=== PATIENT | female | born 1975 | race Caucasian/White ===

== ENCOUNTER 2018-05-26 08:30 | Inpatient (IN) ==
--- NOTE | 2018-05-26 08:49 | ED ---
[facility] General Chief Complaint: Shortness of Breath/Dyspnea Stated Complaint: Sob Time Seen by Provider: 05/26/18 08:44 History of Present Illness Patient presents to the emergency department complaining of shortness of breath that started when she arrived from [place] on a flight Saturday and he got worse last night. She has factor V [place]. Complaint of dyspnea at rest on exertion. Also complaining of sternal chest pain, 6 out of 10, intermittent, nonradiating, new onset, worse with exertion, no alleviating factors. States that she had an ultrasound of her lower extremity secondary to right calf injury and it was negative on the third. She denies fever, vomiting, but reports right lower extremity edema. Related Data Home Medications Medication Instructions Recorded Confirmed eszopiclone [Lunesta] 2 mg PO QDRHS 05/26/18 05/26/18 Allergies Allergy/AdvReac Type Severity Reaction Status Date / Time Penicillins Allergy Anaphylaxis Verified 05/26/18 08:45 Review of Systems ROS Unobtainable All other systems reviewed negative except as stated in HPI [facility] Medical History Medical History Cholecystectomy planned (Acute) Factor 5 Leiden mutation, heterozygous (Acute) History of hysterectomy (Acute) Surgical History Surgical History Gastric bypass status for obesity (Acute) History of appendectomy (Acute) Social History Social History Substance History: No History of Abuse Second Hand Smoke Exposure: No Smoking Status: Former smoker Tobacco Type: Cigarettes How Often Do You Have a Drink Containing Alcohol: 2 to 4 times a month Recent Travel in [facility] within the Last 8 Weeks: No Recent Out of Country Travel within the Last 8 Weeks: No Exam Narrative Exam Narrative: GENERAL: Mild respiratory distress. SKIN: Focused skin assessment warm/dry. HEAD: Atraumatic. Normocephalic. EYES: Pupils equal and round. No scleral icterus. No injection or drainage. ENT: No nasal bleeding or discharge. Mucous membranes pink and moist. NECK: Trachea midline. No JVD. CARDIOVASCULAR: Regular rate and rhythm. No murmur appreciated. RESPIRATORY: No accessory muscle use. Clear to auscultation. Breath sounds equal bilaterally. GASTROINTESTINAL: Abdomen soft, non-tender, nondistended. Hepatic and splenic margins not palpable. MUSCULOSKELETAL: No obvious deformities. No clubbing. No cyanosis. Right lower extremity calf swelling. NEUROLOGICAL: Awake and alert. No obvious cranial nerve deficits. Motor grossly within normal limits. Normal speech. PSYCHIATRIC: Appropriate mood and affect; insight and judgment normal. Course Initial Documented Vital Signs Temperature 97.3 F L 05/26/18 08:33 Pulse Rate 111 H 05/26/18 08:33 Respiratory Rate 24 05/26/18 08:33 Blood Pressure 135/74 05/26/18 08:33 Pulse Oximetry 100 05/26/18 08:33 Last Documented Vital Signs Temperature 97.3 F L 05/26/18 08:33 Pulse Rate 102 H 05/26/18 10:36 Respiratory Rate 20 05/26/18 10:36 Blood Pressure 111/80 05/26/18 10:36 Pulse Oximetry 97 05/26/18 10:36 Medical Decision Making MDM Narrative Medical decision making narrative: Patient presents to the emergency department complaining of chest pain or shortness of breath. Patient was placed on cardiac monitor technician, continuous pulse ox, and IV access was obtained. Stat CTA to rule out PE was ordered, EKG, chest x-ray, labs. 0945-alerted by ground control approach technician that patient has massive bilateral PEs. Spoke to radiologist to repeat CT. Advised that there is questionable right heart strain and massive bilateral PEs. Stat echo ordered. 0951-Spoke to ICU attending, Dr. Reid, advised to call IR as there is a protocol in place for this, tPA then heparin gtt. Labs show elevated BNP, troponin, glucose, CK-MB, AST, ALT, alk phos. Chest x- ray shows no acute process. CTA CONCLUSION:1. There is a large burden of a central PE that appears acute. There are associated findings suggesting elevated right heart pressures/right heart strain.2. The lungs are clear and no other acute finding is identified. U/S CONCLUSION: 1. There is occlusive thrombus/DVT within the right popliteal vein and within the non deep veins of the calf.2. The more proximal veins of the right lower extremity are patent. 0955- Spoke to IR, placed stat consult. Patient currently stable. 1050: Patient taken to IR and has been admitted to ICU. Differential Diagnosis Differential Diagnosis: PE, ACS, pneumothorax, musculoskeletal chest pain, costochondritis Lab Data Result diagrams: 05/26/18 09:00 05/26/18 09:00 Lab Results 05/26/18 05/26/18 05/26/18 Range/Units 09:00 09:00 09:00 WBC 7.9 (4.0-11.0) th/mm3 RBC 4.37 (4.00-5.30) mil/mm3 Hgb 12.1 (11.6-15.3) gm/dL Hct 37.3 (35.0-46.0) % MCV 85.5 (80.0-100.0) fL MCH 27.7 (27.0-34.0) pg MCHC 32.4 (32.0-36.0) % RDW 17.3 H (11.6-17.2) % Plt Count 232 (150-450) th/mm3 MPV 10.3 (7.0-11.0) fL Neut % (Auto) 59.5 (16.0-70.0) % Lymph % (Auto) 30.9 (9.0-44.0) % Trigg % (Auto) 7.6 (0.0-8.0) % Eos % (Auto) 1.0 (0.0-4.0) % Baso % (Auto) 1.0 (0.0-2.0) % Neut # (Auto) 4.7 (1.8-7.7) th/mm3 Lymph # (Auto) 2.4 (1.0-4.8) th/mm3 Trigg # (Auto) 0.6 (0.0-0.9) th/mm3 Eos # (Auto) 0.1 (0.0-0.4) th/mm3 Baso # (Auto) 0.1 (0.0-0.2) th/mm3 WBC Differential . Differential Comment Auto diff final PT 9.9 (9.8-11.6) sec INR 1.0 Ratio APTT 24.6 (24.3-30.1) sec Sodium 140 (136-145) meq/L Potassium 3.8 (3.5-5.1) meq/L Chloride 106 (98-107) meq/L Carbon Dioxide 22.0 (21.0-32.0) meq/L Anion Gap 12 (5-15) meq/L BUN 16 (7-18) mg/dL Creatinine 0.73 (0.50-1.00) mg/dL Estimated GFR 88 L (>89) mL/min Random Glucose 123 H (74-106) mg/dL Calcium 8.8 (8.5-10.1) mg/dL Magnesium 2.1 (1.5-2.5) mg/dL Total Bilirubin 0.4 (0.2-1.0) mg/dL AST 111 H (15-37) U/L ALT 104 H (10-53) U/L Alkaline Phosphatase 124 H (45-117) U/L Total Creatine Kinase 138 (26-192) U/L CK-MB (CK-2) 3.9 H (0.5-3.6) ng/mL Troponin I 0.12 H (0.02-0.05) ng/mL B-Natriuretic Peptide (0-100) pg/mL Total Protein 7.3 (6.4-8.2) g/dL Albumin 3.5 (3.4-5.0) g/dL Blood Type Blood Type Recheck Antibody Screen 05/26/18 05/26/18 Range/Units 09:00 09:00 WBC (4.0-11.0) th/mm3 RBC (4.00-5.30) mil/mm3 Hgb (11.6-15.3) gm/dL Hct (35.0-46.0) % MCV (80.0-100.0) fL MCH (27.0-34.0) pg MCHC (32.0-36.0) % RDW (11.6-17.2) % Plt Count (150-450) th/mm3 MPV (7.0-11.0) fL Neut % (Auto) (16.0-70.0) % Lymph % (Auto) (9.0-44.0) % Trigg % (Auto) (0.0-8.0) % Eos % (Auto) (0.0-4.0) % Baso % (Auto) (0.0-2.0) % Neut # (Auto) (1.8-7.7) th/mm3 Lymph # (Auto) (1.0-4.8) th/mm3 Trigg # (Auto) (0.0-0.9) th/mm3 Eos # (Auto) (0.0-0.4) th/mm3 Baso # (Auto) (0.0-0.2) th/mm3 WBC Differential Differential Comment PT (9.8-11.6) sec INR Ratio APTT (24.3-30.1) sec Sodium (136-145) meq/L Potassium (3.5-5.1) meq/L Chloride (98-107) meq/L Carbon Dioxide (21.0-32.0) meq/L Anion Gap (5-15) meq/L BUN (7-18) mg/dL Creatinine (0.50-1.00) mg/dL Estimated GFR (>89) mL/min Random Glucose (74-106) mg/dL Calcium (8.5-10.1) mg/dL Magnesium (1.5-2.5) mg/dL Total Bilirubin (0.2-1.0) mg/dL AST (15-37) U/L ALT (10-53) U/L Alkaline Phosphatase (45-117) U/L Total Creatine Kinase (26-192) U/L CK-MB (CK-2) (0.5-3.6) ng/mL Troponin I (0.02-0.05) ng/mL B-Natriuretic Peptide 337 H (0-100) pg/mL Total Protein (6.4-8.2) g/dL Albumin (3.4-5.0) g/dL Blood Type A Negative Blood Type Recheck Required Antibody Screen Negative Imaging Data Radiologist's impression: Chest CTA 05/26/18 08:45 CONCLUSION: 1. There is a large burden of a central PE that appears acute. There are associated findings suggesting elevated right heart pressures/right heart strain. 2. The lungs are clear and no other acute finding is identified. 3. These findings were related to the ordering physician immediately after the procedure was completed. Chest X-Ray 05/26/18 08:45 CONCLUSION: No acute cardiopulmonary abnormality is identified. Venous Doppler Study 05/26/18 08:45 CONCLUSION: 1. There is occlusive thrombus/DVT within the right popliteal vein and within the non deep veins of the calf. 2. The more proximal veins of the right lower extremity are patent. ECG Data EKG Prior to Arrival: No Attestation: I personally reviewed and interpreted this ECG as follows: Discharge Plan Discharge Disposition Patient Disposition: 30 Still Patient Discharge Condition Condition: Stable Discharge Details Diagnosis: Acute pulmonary embolus, DVT (deep venous thrombosis) Physicians Team ED Provider: Estela Barr Primary Care Provider: Primary Care Physici,Karina Attending Provider: Abigail Mejía Status ED Status: Admitted Patient
[2018-05-26 09:19] LABS: Baso # (Auto) 0.1 th/mm3 (0.0-0.2); Eos # (Auto) 0.1 th/mm3 (0.0-0.4); Hematocrit 37.3 % (35.0-46.0); Hemoglobin 12.1 gm/dL (11.6-15.3); Lymph # (Auto) 2.4 th/mm3 (1.0-4.8); Lymph % (Auto) 30.9 % (9.0-44.0); Mean Corpuscular HGB Conc 32.4 % (32.0-36.0); Mean Corpuscular Hemoglobin 27.7 pg (27.0-34.0); Mean Corpuscular Volume 85.5 fL (80.0-100.0); Mean Platelet Volume 10.3 fL (7.0-11.0); Mono # (Auto) 0.6 th/mm3 (0.0-0.9); Mono % (Auto) 7.6 % (0.0-8.0); Neut # (Auto) 4.7 th/mm3 (1.8-7.7); Neut % (Auto) 59.5 % (16.0-70.0); Platelet Count 232 th/mm3 (150-450); Red Blood Count 4.37 mil/mm3 (4.00-5.30); Red Cell Distribution Width 17.3 % (11.6-17.2); White Blood Count 7.9 th/mm3 (4.0-11.0)
[2018-05-26 09:25] LABS: Activated Partial Thrombo Time 24.6 sec (24.3-30.1); Prothrombin Time 9.9 sec (9.8-11.6)
[2018-05-26 09:35] LABS: Albumin 3.5 g/dL (3.4-5.0); Anion Gap 12 meq/L (5-15); Aspartate Aminotransferase 111 U/L (15-37); Blood Urea Nitrogen 16 mg/dL (7-18); Calcium 8.8 mg/dL (8.5-10.1); Chloride 106 meq/L (98-107); Glomerular Filtration Rate 88 mL/min (>89); Glucose,Random 123 mg/dL (74-106); Magnesium 2.1 mg/dL (1.5-2.5); Potassium 3.8 meq/L (3.5-5.1); Sodium 140 meq/L (136-145)
[2018-05-26 09:36] LABS: Alanine Aminotransferase 104 U/L (10-53)
--- NOTE | 2018-05-26 09:38 | XR ---
EXAM DATE: 05/26/2018 9:14 AM EDT AGE/SEX: 43 years / Female INDICATIONS: CLINICAL DATA: This is the patient's encounter. Patient reports that signs and symptoms have been pr esent for and indicates a pain score of . MEDICAL/SURGICAL HISTORY: COMPARISON: [facility], CTA PULMONARY W CONTRAST W 3D, 05/26/2018. . FINDINGS: 2 AP views of the chest demonstrate a normal-sized cardiac silhouette. No effusion, consolidation, or pneumothorax is identified. Bones and soft tissues demonstrate no acute abnormality. EKG lines overl ie the patient. CONCLUSION: No acute cardiopulmonary abnormality is identified. Electronically signed by: Jaret Carrington MD 05/26/2018 9:37 AM EDT
[2018-05-26 09:40] LABS: Alkaline Phosphatase 124 U/L (45-117); Creatine Kinase 138 U/L (26-192); Total Protein 7.3 g/dL (6.4-8.2); Troponin I 0.12 ng/mL (0.02-0.05)
[2018-05-26 09:52] LABS: Creatine Kinase MB 3.9 ng/mL (0.5-3.6)
--- NOTE | 2018-05-26 10:36 | CT ---
EXAM DATE: 05/26/2018 9:36 AM EDT AGE/SEX: 43 years / Female INDICATIONS: Chest pain and shortness of breath for three days. CLINICAL DATA: This is the patient's initial encounter. Patient reports that signs and symptoms have been present for 3 days and indicates a pain score of 3/10. MEDICAL/SURGICAL HISTORY: None. Cholecystectomy. Appendectomy. Gastric bypass. RADIATION DOSE: 22.96 CTDI (mGy) ; Patient body habitus COMPARISON: No prior exams available for comparison. TECHNIQUE: Volumetric scanning was performed using a multi-row detector CT scanner during bolus infu anselmo of 73 ml Omnipaque 350 (iohexol) nonionic water-soluble contrast as a single exam dose. The bg a was post processed with a variety of visualization algorithms including full volume maximum intensi ty projection and sliding thin slab reformation. Using automated exposure control and adjustment of the mA and/or kV according to patient size, radiation dose was kept as low as reasonably achievable t o obtain optimal diagnostic quality images. DICOM format image data is available electronically for review and comparison. FINDINGS: Pulmonary Arteries: There is a large volume of central PE with filling defects in the left and right main pulmonary artery and extending into the central lobar and segmental branches. Lungs: No consolidation or pneumothorax is identified. Mediastinum: The main pulmonary artery is mildly enlarged measuring 3.4 cm in diameter compared to 2 .9 cm of the adjacent aorta. There is flattening of the interventricular septum with the right ventri georgette larger than the left ventricle. Contrast refluxes into the IVC and hepatic veins. No lymphadenopa thy is visualized. Pleurae: No pleural effusion or pleural thickening. Axillae: No lymphadenopathy. Musculoskeletal: No acute osseous abnormality is identified. Other: Visualized upper abdominal structures demonstrate no acute abnormality. Patient is post gastr ic bypass surgery with staple lines along the divided stomach. CONCLUSION: 1. There is a large burden of a central PE that appears acute. There are associated findings suggest ing elevated right heart pressures/right heart strain. 2. The lungs are clear and no other acute finding is identified. 3. These findings were related to the ordering physician immediately after the procedure was complet ed. Electronically signed by: Jaret Carrington MD 05/26/2018 10:35 AM EDT
--- NOTE | 2018-05-26 11:00 | US ---
EXAM DATE: 05/26/2018 10:47 AM EDT AGE/SEX: 43 years / Female INDICATIONS: Right leg swelling. CLINICAL DATA: This is the patient's initial encounter. Patient reports that signs and symptoms have been present for 1 day and indicates a pain score of 6/10. MEDICAL/SURGICAL HISTORY: . Factor V. Appendectomy. Hysterectomy. Gastric bypass. COMPARISON: No prior exams available for comparison. TECHNIQUE: Venous ultrasound of both lower extremities was performed from the inguinal ligament to t he proximal calf. Real-time, color Doppler and spectral tracing, compression and augmentation techni ques were used. FINDINGS: There is lack of normal compression within the popliteal, peroneal, and posterior tibial v eins in the right lower extremity. These vessels also demonstrate lack of normal blood flow along wit h abnormal intraluminal echoes. The more proximal veins of the right lower extremity are patent inclu ding the external iliac and femoral veins. CONCLUSION: 1. There is occlusive thrombus/DVT within the right popliteal vein and within the non deep veins of the calf. 2. The more proximal veins of the right lower extremity are patent. Electronically signed by: Jaret Carrington MD 05/26/2018 10:58 AM EDT
[2018-05-26] MEDS ORDERED: Heparin Drip 25,000 UNIT/250 ML BAG IV.CONT ONE (11:23)
[2018-05-26] MEDS ORDERED: Cathflo Activase Inj 2 MG Vial I-CATHETER ONE (11:30)
[2018-05-26] MEDS ORDERED: Cathflo Activase Inj 2 MG Vial IV.PUSH ONE (11:30)
--- NOTE | 2018-05-26 12:15 | ECHRPT ---
Indication: SHORTNESS OF BREATH, BILATERAL PULMONARY EMBOLI CONCLUSIONS Technically difficult study. Normal left ventricular size. Wall thickness is normal. The left ventricular systolic function is no rmal with an estimated ejection fraction in the range of 55-60%. No definite wall motion abnormalities. Possible mild right ventricular enlargement with reduced systolic function. The right atrial size is possibly moderately dilated. BP: / HR: Rhythm: MEASUREMENTS (Male / Female) Normal Values Technical Quality: 2D ECHO IVS Diastolic Thickness 1.0 cm 0.6 - 1.0 / 0.6 - 0.9 cm LVPW Diastolic Thickness 1.0 cm 0.6 - 1.0 / 0.6 - 0.9 cm RV Internal Dim ED PLAX 3.6 cm DOPPLER AV Peak Velocity 89.6 cm/s AV Peak Gradient 3.2 mmHg AV Mean Gradient 2.0 mmHg AV Velocity Time Integral 10.9 cm LVOT Peak Velocity 76.7 cm/s LVOT Peak Gradient 2.4 mmHg LVOT Velocity Time Integral 8.0 cm Mitral E Point Velocity 46.4 cm/s Mitral A Point Velocity 69.1 cm/s Mitral E to A Ratio 0.7 LV E' Lateral Velocity 9.0 cm/s Mitral E to LV E' Lateral Ratio 5.2 Mitral E to LV E' Septal Ratio 7.4 FINDINGS LEFT VENTRICLE Normal left ventricular size. Wall thickness is normal. The left ventricular systolic function is normal with an estimated ejectio n fraction in the range of 55-60%. No definite wall motion abnormalities. RIGHT VENTRICLE Possible mild right ventricular enlargement with reduced systolic function. LEFT ATRIUM The left atrial size is normal. RIGHT ATRIUM The right atrial size is possibly moderately dilated. ATRIAL SEPTUM The interatrial septum not well visualized. AORTA The aortic root and proximal ascending aorta are normal in size on limited imaging. MITRAL VALVE Structurally normal mitral valve. No mitral valve stenosis or regurgitation. AORTIC VALVE Trileaflet aortic valve. No aortic valve stenosis or regurgitation. TRICUSPID VALVE Structurally normal tricuspid valve. No tricuspid valve stenosis or regurgitation. PULMONARY VALVE No pulmonary valve regurgitation or stenosis. VESSELS The inferior vena cava was not well visualized. PERICARDIUM No pericardial effusion. Ayad Herrera MD (Electronically Signed) Final Date:26 May 2018 12:14
[2018-05-26] MEDS ORDERED: Cathflo Activase Inj 10 MG in Sodium Chlor 0.9% Inj 500 ML I-CATHETER PRN (12:31)
[2018-05-26] MEDS ORDERED: Heparin Drip 25,000 UNIT/250 ML BAG IV.CONT SCH (12:45)
[2018-05-26] MEDS ORDERED: Bisacodyl 10 MG Supp RECTAL PRN (13:38)
[2018-05-26] MEDS ORDERED: Dextrose 50% in Water 50 ML Vial IV.PUSH PRN (13:53)
--- NOTE | 2018-05-26 14:05 | P.RAD ---
Post Procedure Progress Note - Pre Procedure Diagnosis (1) Acute pulmonary embolus (2) DVT (deep venous thrombosis) - Post Procedure Diagnosis (1) Acute pulmonary embolus (2) DVT (deep venous thrombosis) - Procedure Information Supervising Radiologist: Imtiaz Caruso MD - Plan of Activity See PACS Report for procedural detail/treatment. Vascular - Venous Procedure right Thoracic Procedure(s): Thrombolysis (Bilateral PE) CVAD Radiology Procedures - Additional Detail Findings: Bilateral PE. Laced with 4mg TPA. TPA initated at 2mg/hr
[2018-05-26] MEDS: Dextrose 5%/NaCl 0.9% Inj 1,000 ML IV.CONT SCH (14:25)
[2018-05-26] MEDS: Famotidine 20 MG Tablet PO SCH ×2 (14:36→20:41)
--- NOTE | 2018-05-26 15:18 | MH ---
cc: Abigail Mejía MD DATE OF ADMISSION: 05/26/2018 DATE OF : 1975 HISTORY OF PRESENT ILLNESS: The patient is a 43-year-old female with a past medical history of factor V Leiden mutation, multiple miscarriages, who presented to [facility] ED with complaints of shortness of breath that started when she arrived from [place] on a flight Saturday and progressively worsened overnight. She also reports midsternal chest pain intermittently, localized, worse with exertion. She denies any associated symptoms of cough or any constitutional symptoms. On arrival to the ER, she was tachycardic. A CTA of the chest showed large burden of central PE with findings suggestive of elevated right-sided heart pressure/right heart strain. The patient also had a Doppler ultrasound of the lower extremity in the ER, which showed occlusive thrombus, DVT within the right popliteal vein and within the non-deep veins of the calf. The patient went to IR where she underwent thrombolysis and tPA was initiated at 2 mg in an hour along with heparin drip at 500 units per hour. The patient is on room air oxygen when seen. Echocardiogram was obtained as well, which showed EF of 55% to 60%, reduced systolic RV function with mild RV enlargement. The patient denies any prior history of thromboembolism and denies any family history of PE/DVT. 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 PAST SURGICAL HISTORY: Previous hysterectomy. SOCIAL HISTORY: Occasional drinker, ex-smoker. MEDICATIONS AT HOME: Lunesta and venlafaxine. FAMILY HISTORY: Aunt with a stroke. REVIEW OF SYSTEMS: As per HPI. Rest of review of systems is unremarkable. PHYSICAL EXAMINATION: GENERAL: A 43-year-old female lying in bed, in no acute respiratory distress. VITAL SIGNS: Afebrile, pulse of 97, blood pressure 114/69, saturation 98% on room air. HEENT: Atraumatic, normocephalic. Pupils are equal, round, reactive to light and accommodation. Extraocular muscles intact. Conjunctivae pink. Nonicteric sclerae. Oral mucosa within normal. NECK: Supple. No JVD, adenopathy or thyromegaly. Trachea in the midline. CARDIOVASCULAR: Regular rate and rhythm. Normal S1, S2. No murmurs, rubs or gallops noted. PULMONARY: Bilateral equal air entry. No rales or wheezing. ABDOMEN: Soft, obese, nontender. No distention. Positive bowel sounds. EXTREMITIES: No cyanosis, clubbing, +1 edema in right lower extremity. NEUROLOGIC: No focal sensory deficit. LABORATORY DATA: Sodium 140, potassium 3.8, chloride 106, CO2 of 22, BUN 16, creatinine 0.73, glucose 123. Total bilirubin 0.4, AST 111, ALT 104, alkaline phosphatase 124, total CK 138. Troponin 0.12. BNP 337. Albumin 3.5. WBC 7.9, hemoglobin 12, hematocrit 37, platelet count 232. INR 1, PT 9.9, PTT 24.6. RADIOGRAPHIC STUDIES: A CTA of the chest showed large burden of central PE bilaterally with evidence of right heart strain. Doppler ultrasound of lower extremity showed DVT right lower extremity. Echocardiogram showed EF 55-60% with reduced RV systolic function and mild RV enlargement. IMPRESSION: 1. Respiratory insufficiency. 2. Bilateral pulmonary embolism. 3. Deep venous thrombosis of right lower extremity. 4. History of Factor V Leiden mutation. 5. History of multiple miscarriages. 6. Elevated liver enzymes. 7. Obesity. 8. Mildly elevated troponin with elevated brain natriuretic peptide, likely secondary to pulmonary embolism. RECOMMENDATIONS: 1. Monitor neuro status closely and avoid any sedatives. 2. Oxygen p.r.n. to maintain sats above 92%. 3. Bronchodilators on in the form of DuoNeb q. 6 hours, plus q.2 hours p.r.n. for shortness of breath. 4. Monitor heart rate and blood pressure closely and maintain MAP greater than 65 mmHg. Monitor or trend troponins and CKs. 5. Echocardiogram as stated above showed reduced RV systolic function with mild RV enlargement, EF 55-60%. 6. The patient is currently receiving tPA at 2 mg an hour in addition to heparin drip 500 units an hour per protocol. 7. Monitor renal function, I's and O's and electrolyte replacement as needed. IV fluids in the form of D5NS at 84 mL an hour. 8. Keep n.p.o. for now and continue with IV fluids, as stated above. Monitor LFTs. We will obtain ultrasound of the liver and check hepatitis profile. 9. Place on Pepcid for gastrointestinal prophylaxis. 10. Monitor for signs of infection, which include fever and WBC 11. Monitor CBC and coags. We will consult hematology service and will check hypercoagulable profile which includes anticardiolipin antibody, antithrombin III, antiphospholipid, factor VIII activity, factor V Leiden mutation, homocysteine level, lupus anticoagulant and protein S activity. 12. Sliding scale insulin, Accu-Cheks as needed to maintain euglycemia. 13. Gastrointestinal prophylaxis with Pepcid and DVT prophylaxis. The patient is on tPA and heparin infusion currently. 14. Right IJ central line was placed by IR. 15. Further recommendations will be based on hospital course. MD MED Royal/KARL , 02:43 PM , 03:17 PM
[2018-05-26] MEDS: Morphine Inj 4 MG/ML Vial IV.PUSH PRN ×4 (15:41→23:58)
--- NOTE | 2018-05-26 15:43 | IR ---
EXAM DATE: 05/26/2018 11:59 AM EDT AGE/SEX: 43 years / Female INDICATIONS: Patient with bilateral pulmonary embolism in need of central line placement with thromb olytic infusion. CLINICAL DATA: This is the patient's initial encounter. Patient reports that signs and symptoms have been present for 2 days and indicates a pain score of 4/10. MEDICAL/SURGICAL HISTORY: . Factor V Leiden Gastric bypass. Hysterectomy. Cholecystectomy. COMPARISON: No prior exams available for comparison. FLUORO TIME (min): 0.1 IMAGE SERIES: 1 ACCESS SITE: Right internal jugular vein DEVICE(S): 7 [place] triple lumen X16CM Arrow central line . . PROCEDURE : 1. Ultrasound guided venipuncture. 2. Fluoroscopic guidance. 3. Central line placement. The risks, benefits and alternatives to the procedure were explained and verbal and written consent w as obtained. The site was prepped in sterile fashion. Full sterile technique was used, including ca p, mask, sterile gloves and gown and a large sterile sheet. Hand hygiene and 2% chlorhexidine prep w as utilized per protocol for cutaneous antisepsis with appropriate dry time for site. Sterile gel an d sterile probe cover were utilized for ultrasound guidance. The skin and subcutaneous tissues were infiltrated with local anesthetic solution. A suitable site a karly the vein was selected with ultrasound and fluoroscopic guidance. A small incision was made. Th e vein was accessed under direct ultrasound visualization using the micropuncture technique. The andres ropuncture set was exchanged for a 0.035 wire. The tract was dilated. The catheter was advanced int o position under direct fluoroscopic visualization, and was advanced with the tip at the junction of the superior vena cava and rt atrium. The catheter was fixed in place with suture and a sterile dres sing was applied. The patient tolerated the procedure well and there were no complications. CONCLUSION: 1. Uncomplicated line placement as above. Electronically signed by: Imtiaz Caruso MD 05/26/2018 3:41 PM EDT
[2018-05-26] MEDS: Cathflo Activase Inj 10 MG in Sodium Chlor 0.9% Inj 500 ML I-CATHETER PRN ×2 (16:43→21:48)
--- NOTE | 2018-05-26 17:31 | US ---
EXAM DATE: 05/26/2018 4:58 PM EDT AGE/SEX: 43 years / Female INDICATIONS: Elevated liver functions. CLINICAL DATA: This is the patient's initial encounter. Patient reports that signs and symptoms have been present for 1 day and indicates a pain score of 6/10. MEDICAL/SURGICAL HISTORY: . Factor 5 Leiden mutation, heterozygous. Hysterectomy. Gastric byp ass. Appendectomy. COMPARISON: No prior exams available for comparison. MEASUREMENTS: Liver:__ 17.3 cm. Common Bile Duct:__ 5mm. Right Kidney:__ cm. FINDINGS: Liver: Increased echotexture without focal lesion or ductal dilation. Portal Vein: Hepatopedal flow seen in portal vein. Common Duct: No intraluminal mass or stone visualized. Gallbladder: Surgically absent. Pancreas: The visualized portions are within normal limits Right Kidney: Normal echotexture and cortical thickness. No mass or hydronephrosis. Other: None. CONCLUSION: The liver is slightly echogenic which may be due to fatty infiltration and or hepatocellular dysfunct ion. Electronically signed by: Yash Kelley MD 05/26/2018 5:29 PM EDT
--- NOTE | 2018-05-26 17:33 | ECG ---
Date Performed: 05/26/2018 Time Performed: 08:52:25 PTAGE: 43 years EKG: SINUS TACHYCARDIA LOW QRS VOLTAGE IN PRECORDIAL LEADS POSSIBLE RIGHT VENTRICULAR CONDUCTION DELAY SEPTAL MYOCARDIAL INFARCTION MODERATE T-WAVE ABNORMALITY, CONSIDER ANTEROLATERAL ISCHEMIA ABNO RMAL ECG NO PREVIOUS TRACING DOCTOR: Tristan Adam Interpretating Date/Time 05/26/2018 17:29:49
[2018-05-26 18:46] LABS: Baso # (Auto) 0.1 th/mm3 (0.0-0.2); Baso % (Auto) 0.9 % (0.0-2.0); Eos % (Auto) 0.7 % (0.0-4.0); Hematocrit 31.6 % (35.0-46.0); Hemoglobin 10.4 gm/dL (11.6-15.3); Lymph # (Auto) 2.8 th/mm3 (1.0-4.8); Lymph % (Auto) 41.7 % (9.0-44.0); Mean Corpuscular Hemoglobin 28.4 pg (27.0-34.0); Mean Corpuscular Volume 85.9 fL (80.0-100.0); Mean Platelet Volume 10.6 fL (7.0-11.0); Mono # (Auto) 0.5 th/mm3 (0.0-0.9); Neut # (Auto) 3.3 th/mm3 (1.8-7.7); Neut % (Auto) 49.7 % (16.0-70.0); Platelet Count 170 th/mm3 (150-450); Red Blood Count 3.68 mil/mm3 (4.00-5.30); Red Cell Distribution Width 16.8 % (11.6-17.2); White Blood Count 6.7 th/mm3 (4.0-11.0)
--- NOTE | 2018-05-26 19:00 | MB ---
cc: Kirsten Vásquez MD DATE: 05/26/2018 REASON FOR CONSULTATION: Consult requested by lubricating specialist for evaluation and management of right lower extremity deep venous thrombosis with a large burden pulmonary embolism causing right heart strain and requiring tPA infusion. HISTORY OF PRESENT ILLNESS: This is a 43-year-old, very pleasant white female. She is a very good historian. She works for an [employer] in [place] near [place]. She stays usually in the office and does not travel for the company. The patient stated that she had a history of morbid obesity and underwent gastric bypass surgery in July 2006. Her weight went down from 300 pounds to 160 pounds. However, subsequently she had 2 deliveries and she regained her weight and now she weigh 225 pounds. She has a history of multiple miscarriages, at least x10 that she can recall. The longest she carried was 16 weeks during that time. The patient, when she become again in 2008, was evaluated by different OB. Due to previous history of multiple miscarriages she was referred to a tube man in [place], who did the hypercoagulable workup when she was 11 weeks . She was diagnosed with heterozygous factor V Leiden mutation. She was placed on Lovenox during the . Due to intrauterine growth retardation, the patient underwent at 34 weeks. She had her first child. She stated that she was not nursing and she continued the Lovenox 6 weeks after the . Roughly around 13 or 14 months after the first delivery, she became again and was treated with Lovenox. This time, she continued her until 38 weeks and underwent a . She was nursing at that time and did not get any blood thinners after the delivery. She states that she has a sister who also was checked for factor V Leiden and other hypercoagulable panel when she got and she was negative. She has 1 biological brother who does not want to be tested. She has no family history of thromboembolic disease. The patient sustained an injury to her right calf while helping her mother move boxes as she was moving. The date of incidence was on 05/09/2018. She noticed the right leg was swollen. She had a Doppler ultrasound of the leg in [place], which was reported to be negative. She went to see her primary physician for followup. The primary physician was not available and she was evaluated by a physician assistant manager. She had the ultrasound of the leg on 05/13/2018, which was reported to be negative. Then, because of the persistent swelling, she had an MRI of the right lower extremity which showed only soft tissue swelling in the lower leg. There was no fracture noted. She was diagnosed to have right calf strain and was given a boot and compressive stockings and right lower extremity immobilizer so that the right calf strain would heal. She did not get any blood thinners for prevention of DVT during that time. The patient had already made the plan to come down to [place] for vacation with her family. She flew from [place] directly to [place]. It was a nonstop 2 hours flight. She flew in this past Saturday, 2 days ago. When she landed she was having some shortness of breath. She thought that this was all anxiety reaction and she did not pay much attention to it. Yesterday, she noticed that she could hardly walk even a few steps without stopping for breathing. She felt like she was going to pass out. The patient came into the emergency room early this morning with these symptoms. In the ER the patient was tachycardic and tachypneic. A CT angiogram of the chest was immediately done, which showed large burden of central pulmonary embolism that appears acute. There are associated findings suggesting elevated right heart pressure/right heart strain. The lungs were clear, and there were no other acute findings noted. Interventional Radiologist was consulted and the patient underwent tPA thrombolysis of the pulmonary embolism. She has tolerated the procedure extremely well. The patient was placed on heparin. She is now in the intensive care unit. I have been asked to see her for further evaluation. REVIEW OF SYSTEMS: The patient stated that her breathing has improved remarkably since the tPA infusion. She does not have any pleuritic chest pains. She does not have any feeling of presyncopal episodes. She denies any headaches or dizziness. She denies any nausea, vomiting or diarrhea. She denies any abdominal pain. She also noticed that the swelling in the right lower extremity has improved much compared to the last week. The Doppler ultrasound today showed DVT of the right lower extremity. The rest of the review of systems is negative. 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 PAST SURGICAL HISTORY: Appendectomy, cholecystectomy, complete hysterectomy for ovarian cyst, x2, left knee surgery, gastric bypass surgery in July 2006. ALLERGIES: PENICILLIN. MEDICATIONS: Lunesta, venlafaxine, B12 and bariatric vitamins. FAMILY HISTORY: Father had hepatitis C and had developed cirrhosis of the liver. He had a therapeutic paracentesis and during one of those procedure he had a cardiac event and . Mother is alive and well. Her maternal aunt had multiple strokes at young age of 39. The patient has one brother who has declined to be tested for hypercoagulable panel. She has 1 sister who is heterozygous for factor V Leiden. The patient has 2 sons, both are heterozygous for factor V Leiden. She does not have any daughters. SOCIAL HISTORY: The patient is . Her also is heterozygous for factor V Leiden. The patient quit smoking 2005. She smoked 1 pack a day for 11 years. She drinks alcohol socially. She works for an [employer], [employer]. She lives near [place], [place], and is vacationing in this area. PHYSICAL EXAMINATION: GENERAL: a well-developed, well-nourished white female, in no apparent distress. VITAL SIGNS: Temperature 98.5, heart rate is 100, blood pressure is 20, blood pressure is 126/67, O2 saturation is 96 percent. HEENT: PERRLA. EOMI, anicteric. No oral lesions noted. NECK: No lymphadenopathy noted. LUNGS: Clear. No wheezing, rhonchi or rales. HEART: Regular rate and rhythm. ABDOMEN: Nontender. No hepatosplenomegaly. EXTREMITIES: No pedal edema. NEUROLOGIC: Awake, alert, oriented x3. SKIN: No significant lesions are noted. ASSESSMENT: 1. Provoked right lower extremity deep venous thrombosis with extensive pulmonary embolism causing right heart strain, status post tissue plasminogen activator infusion and now on heparin. 2. History of multiple miscarriages, at least 10. 3. Personal history of heterozygous for factor V Leiden mutation. 4. Strong family history of factor V Leiden mutation as both of her sons are heterozygous. Her is also heterozygous for factor V Leiden mutation. 5. History of morbid obesity, status post gastric bypass surgery. 6. Chronic insomnia. 7. Post-menopausal syndrome. PLAN: I have reviewed her available records and I had an extensive discussion with the patient regarding the right lower extremity DVT and pulmonary embolus. She had an extensive hypercoagulable workup done in [place] due to a history of multiple, at least 10 miscarriages. The hypercoagulable workup showed that she is heterozygous for factor V Leiden mutation. She successfully carried her subsequent 2 pregnancies with the Lovenox. The first ended up in . She was at that time 34 weeks . The second was successfully continued with Lovenox until 38 weeks and had a healthy baby with a . She never had any history of thromboembolic disease. She does not have any family history of thromboembolic disease except that maternal aunt had multiple strokes starting at the age of 39 and subsequently she . We discussed that this is a provoked event. It all started due to right calf strain while moving boxes and furniture to assist her mother in moving. She noticed swelling of the right lower extremity and the Doppler ultrasound on 05/13/2018 was reported to be negative. She had an MRI of the right lower extremity also which showed soft tissue swelling in the right calf with no other significant findings. She was advised to place the right lower extremity in immobilizer using a boot. No anticoagulant were prescribed for prevention of DVT for the duration of the immobilizer use. She traveled from [place] to [place] on a nonstop flight for 2 hours. When she landed she was having shortness of breath, which is due to extensive pulmonary embolism. She came into [place] on Saturday, which is 2 days ago, and became quite ill last night. She came into the emergency room this morning. The workup showed occlusive DVT of the right lower extremity and extensive pulmonary embolus causing right heart strain. She successfully underwent tPA therapy and her symptoms are improving. We discussed that I do not recommend to order the hypercoagulable panel as the management is not going to be changed, regardless what the results would be during this admission. In my opinion, these tests should be done in non-acute setting in 8-12 weeks' time. She already had an extensive hypercoagulable workup for multiple miscarriages in [place]. The workup of that showed that she is heterozygous for factor V Leiden mutation. Those records are not available, but the patient is a very good historian. 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 She is very pleasant and knows most of the facts of her medical history. My recommendation is that, once the patient is stable on heparin, then she can be switched over to Eliquis twice a day. We discussed pros and cons of Eliquis versus Xarelto. The patient agreed to take the Eliquis. Given that this was a first provoked DVT with pulmonary embolism due to placement of immobilizer and using boot, my recommendation is for a year of anticoagulant therapy. The patient wanted to go back to [place], in fact, she has tickets for this coming Saturday to go back home. We will decide whether she will be able to travel based on her hospital stay. The patient has asked several questions and these were answered to her satisfaction. Thank you for asking my opinion. MD STEFFI Og/KARL , 05:39 PM , 06:58 PM [email or web address]
[2018-05-26 20:39] LABS: Hepatitits B Surface Antigen Nonreactive (Nonreactive)
[2018-05-26] MEDS: Senna/Docusate Sodium 8.6/50 MG Tablet PO SCH (20:42)
[2018-05-26] MEDS: Insulin NovoLIN Regular Correctional Sugar Inj SQ SCH (23:06)
[2018-05-26 23:59] LABS: Baso # (Auto) 0.1 th/mm3 (0.0-0.2); Baso % (Auto) 0.9 % (0.0-2.0); Eos # (Auto) 0.1 th/mm3 (0.0-0.4); Hematocrit 29.9 % (35.0-46.0); Lymph # (Auto) 2.4 th/mm3 (1.0-4.8); Mean Corpuscular HGB Conc 33.3 % (32.0-36.0); Mean Corpuscular Hemoglobin 28.6 pg (27.0-34.0); Mean Corpuscular Volume 86.1 fL (80.0-100.0); Mean Platelet Volume 9.7 fL (7.0-11.0); Mono # (Auto) 0.4 th/mm3 (0.0-0.9); Mono % (Auto) 6.5 % (0.0-8.0); Neut # (Auto) 3.4 th/mm3 (1.8-7.7); Neut % (Auto) 53.6 % (16.0-70.0); Platelet Count 153 th/mm3 (150-450); Red Blood Count 3.47 mil/mm3 (4.00-5.30); Red Cell Distribution Width 16.7 % (11.6-17.2); White Blood Count 6.3 th/mm3 (4.0-11.0)
[2018-05-27 00:04] LABS: Activated Partial Thrombo Time 25.8 sec (24.3-30.1)
[2018-05-27] MEDS: Insulin NovoLIN Regular Correctional Sugar Inj SQ SCH ×4 (00:24→19:55)
[2018-05-27] MEDS: Dextrose 5%/NaCl 0.9% Inj 1,000 ML IV.CONT SCH (02:19)
[2018-05-27] MEDS: Cathflo Activase Inj 10 MG in Sodium Chlor 0.9% Inj 500 ML I-CATHETER PRN ×2 (03:05→08:46)
[2018-05-27] MEDS: Morphine Inj 4 MG/ML Vial IV.PUSH PRN ×6 (03:06→19:38)
[2018-05-27] MEDS: Chlorhexidine Gluconate 2% 1 Pack (2 Cloths) TOPICAL SCH (03:59)
[2018-05-27] MEDS ORDERED: Chlorhexidine Gluconate 2% 1 Pack (2 Cloths) TOPICAL PRN (04:00)
[2018-05-27 05:59] LABS: Baso % (Auto) 0.7 % (0.0-2.0); Eos # (Auto) 0.2 th/mm3 (0.0-0.4); Eos % (Auto) 2.4 % (0.0-4.0); Hematocrit 30.8 % (35.0-46.0); Hemoglobin 9.9 gm/dL (11.6-15.3); Lymph # (Auto) 2.7 th/mm3 (1.0-4.8); Lymph % (Auto) 39.3 % (9.0-44.0); Mean Corpuscular HGB Conc 32.2 % (32.0-36.0); Mean Corpuscular Hemoglobin 27.9 pg (27.0-34.0); Mean Corpuscular Volume 86.8 fL (80.0-100.0); Mean Platelet Volume 9.8 fL (7.0-11.0); Mono # (Auto) 0.5 th/mm3 (0.0-0.9); Mono % (Auto) 7.3 % (0.0-8.0); Neut # (Auto) 3.4 th/mm3 (1.8-7.7); Neut % (Auto) 50.3 % (16.0-70.0); Platelet Count 154 th/mm3 (150-450); Red Blood Count 3.55 mil/mm3 (4.00-5.30); Red Cell Distribution Width 16.8 % (11.6-17.2); White Blood Count 6.8 th/mm3 (4.0-11.0)
[2018-05-27 06:09] LABS: Activated Partial Thrombo Time 25.2 sec (24.3-30.1)
[2018-05-27 06:30] LABS: Alanine Aminotransferase 62 U/L (10-53); Albumin 2.8 g/dL (3.4-5.0); Alkaline Phosphatase 99 U/L (45-117); Anion Gap 11 meq/L (5-15); Aspartate Aminotransferase 32 U/L (15-37); Blood Urea Nitrogen 13 mg/dL (7-18); Calcium 8.1 mg/dL (8.5-10.1); Chloride 110 meq/L (98-107); Glomerular Filtration Rate Greater Than 89 mL/min (>89); Glucose,Random 126 mg/dL (74-106); Potassium 3.4 meq/L (3.5-5.1); Sodium 143 meq/L (136-145)
[2018-05-27] MEDS: Famotidine 20 MG Tablet PO SCH ×2 (08:20→20:53)
[2018-05-27] MEDS: Senna/Docusate Sodium 8.6/50 MG Tablet PO SCH ×2 (08:22→20:15)
--- NOTE | 2018-05-27 09:31 | P.PNCC ---
Subjective Subjective Remarks/Hospital Course: Hospital Course: 43yF with submassive PE receiving IR/catheter directed TPA. Subjective: 05/27: doing well clinically. SOB improving. CP persists, but is now mild. denies headache. hgb stable. fibrinogen appropriate. discussed case with Dr. Valle in IR: plan to d/c TPA infusion at noon (24h post initiation). ROS otherwise negative. no uop overnight and only 250cc by bladder scan, patient denies urgency to void. Cr at baseline. Objective Vital Signs / I&O: Vital Signs 05/26/18 10:36 05/26/18 12:00 05/26/18 12:15 Temperature Pulse Rate 102 H 99 H 98 H Respiratory Rate 20 10 L 18 Blood Pressure 111/80 113/88 118/92 H Pulse Oximetry 97 95 93 L 05/26/18 12:30 05/26/18 12:45 05/26/18 13:00 Temperature Pulse Rate 100 H 101 H 98 H Respiratory Rate 18 18 18 Blood Pressure 121/84 116/80 116/76 Pulse Oximetry 95 94 L 95 05/26/18 13:15 05/26/18 13:30 05/26/18 13:45 Temperature 36.1 C L Pulse Rate 99 H 100 H 107 H Respiratory Rate 16 18 18 Blood Pressure 115/65 Pulse Oximetry 93 L 93 L 95 05/26/18 14:00 05/26/18 14:15 05/26/18 14:30 Temperature Pulse Rate 92 H 94 H 92 H Respiratory Rate 18 18 18 Blood Pressure 113/72 114/69 115/68 Pulse Oximetry 97 98 98 05/26/18 14:37 05/26/18 14:45 05/26/18 15:00 Temperature Pulse Rate 96 H 92 H 111 H Respiratory Rate 17 14 20 Blood Pressure 113/70 118/73 Pulse Oximetry 99 99 100 05/26/18 15:15 05/26/18 15:30 05/26/18 15:45 Temperature Pulse Rate 92 H 92 H 94 H Respiratory Rate 23 18 21 Blood Pressure 114/64 118/67 Pulse Oximetry 98 99 99 05/26/18 16:00 05/26/18 16:30 05/26/18 17:00 Temperature 36.6 C Pulse Rate 100 H 92 H 91 H Respiratory Rate 20 10 L 9 L Blood Pressure 126/67 114/74 118/71 Pulse Oximetry 96 96 95 05/26/18 17:30 05/26/18 18:00 05/26/18 18:30 Temperature Pulse Rate 94 H 98 H 84 Respiratory Rate 15 22 13 Blood Pressure 117/71 104/76 106/62 Pulse Oximetry 93 L 93 L 95 05/26/18 19:00 05/26/18 19:04 05/26/18 19:30 Temperature Pulse Rate 90 90 80 Respiratory Rate 15 20 16 Blood Pressure 108/68 100/71 Pulse Oximetry 96 96 96 05/26/18 20:00 05/26/18 20:30 05/26/18 20:34 Temperature 36.7 C Pulse Rate 77 80 83 Respiratory Rate 16 19 16 Blood Pressure 106/78 105/78 Pulse Oximetry 97 97 96 05/26/18 21:00 05/26/18 21:30 05/26/18 21:52 Temperature Pulse Rate 82 82 Respiratory Rate 20 16 18 Blood Pressure 105/69 102/61 Pulse Oximetry 94 L 94 L 05/26/18 22:00 05/26/18 22:06 05/26/18 22:30 Temperature Pulse Rate 82 82 79 Respiratory Rate 17 13 Blood Pressure 101/56 L 95/62 L Pulse Oximetry 92 L 94 L 05/26/18 23:00 05/26/18 23:30 05/27/18 00:00 Temperature 36.6 C Pulse Rate 82 77 78 Respiratory Rate 16 12 13 Blood Pressure 96/65 L 100/67 118/65 Pulse Oximetry 96 95 95 05/27/18 00:01 05/27/18 00:25 05/27/18 00:30 Temperature Pulse Rate 78 78 78 Respiratory Rate 14 16 13 Blood Pressure 118/65 108/78 Pulse Oximetry 95 97 05/27/18 01:00 05/27/18 01:30 05/27/18 02:00 Temperature Pulse Rate 80 77 77 Respiratory Rate 11 L 10 L 13 Blood Pressure 110/63 114/65 107/66 Pulse Oximetry 95 96 95 05/27/18 02:30 05/27/18 03:00 05/27/18 03:30 Temperature Pulse Rate 73 73 80 Respiratory Rate 20 15 14 Blood Pressure 108/56 L 115/67 109/67 Pulse Oximetry 96 96 95 05/27/18 04:00 05/27/18 04:09 05/27/18 04:30 Temperature 37.1 C Pulse Rate 74 77 79 Respiratory Rate 10 L 16 11 L Blood Pressure 98/68 L 106/64 Pulse Oximetry 95 94 L 05/27/18 05:00 05/27/18 05:30 05/27/18 06:00 Temperature Pulse Rate 90 81 72 Respiratory Rate 19 13 10 L Blood Pressure 136/73 113/61 101/59 L Pulse Oximetry 90 L 91 L 91 L 05/27/18 06:30 05/27/18 07:00 05/27/18 07:01 Temperature Pulse Rate 73 75 72 Respiratory Rate Blood Pressure 89/64 L 109/61 Pulse Oximetry 93 L 94 L 94 L 05/27/18 07:30 05/27/18 08:00 05/27/18 08:01 Temperature Pulse Rate 73 74 69 Respiratory Rate 17 12 Blood Pressure 111/58 L 109/75 Pulse Oximetry 94 L 94 L 95 05/27/18 08:30 05/27/18 09:00 Temperature Pulse Rate 83 71 Respiratory Rate 19 20 Blood Pressure 95/70 L 104/55 L Pulse Oximetry 92 L 94 L Intake & Output 05/26/18 05/27/18 05/27/18 18:59 06:59 18:59 Intake Total 262.5 / 262.5 1999 500 / 500 Balance 262.5 / 262.5 1999 500 / 500 Weight 103.5 kg 103.5 kg Intake: IV 12.5 / 12.5 1999 500 / 500 Cathflo Activase Inj 10 MG In 1000 / 1000 500 / 500 NS Inj 500 ML @ Per Protocol 100 mls/hr I-CATHETER TITRATE PRN Rx#:[id number] D5W/Normal Saline Inj 1,000 ML 1000 / 1000 @ 84 mls/hr IV.CONT .[id number] NORMA Rx#:[id number] Heparin/D5W 25,000 U/250 mL 25, 12.5 / 12.5 000 unit In 250 ml @ 0 mls/hr IV.CONT .STK-MED ONE Rx#: [id number] Oral 250 / 250 Other: Weight On Admission 103.5 kg Result Diagrams: 05/27/18 05:36 05/27/18 05:36 Other Results: gen: obese female, lying in bed, no acute distress. heent: nc. at. yarely. mmm. neck: no jvd. trachea midline. chest: equal chest rise. unlabored. 4L o2 by NC. spo2 93% cv: normal rate, regular rhythm. sinus. sbp 109 on my eval. abd: soft, obese, nontender, nondistended, no guarding. extr: no edema. distal pulses 2+. neuro: RASS 0. GCS 15. neuro intact. Assessment and Plan - Assessment and Plan Plan: Assessment: 43yF with Factor V Leiden and submassive PE with associated hypoxemia and RV strain. Submassive PE - d/c TPA infusion after 24h (noon) - heparin infusion - plan for NOAC in AM - hematology consult - d/c CVL tomorrow AM. - counseled patient on high risk of sudden cardiac x 2 weeks and 30% change of severe persistent pulmonary hypertension. RV strain - would be a good candidate for a short 4-6 week course of sildenafil, but currently borderline hypotensive so will not start this. - hemodynamically stable. - recommended to the patient to follow up with a airconditioning drafting officer in [place] when she gets home. - keep mivf one more day. Factor V Leiden - anticoagulation as above - hematology consult Acute hypoxemia - nc o2 for goal spo2 > 90% - OOB with assist after TPA off - I.S. to bedside. Morbid Obesity - advance diet to regular as tolerated Dispo: - transfer out of ICU tomorrow - consult hospitalist to assume care.
[2018-05-27] MEDS ORDERED: Potassium Chlor 40 mEq Premix 40 MEQ/100 ML PIGGYBACK IV.SIG PRN ×2 (10:14)
[2018-05-27] MEDS ORDERED: Magnesium Oxide 400 MG Tablet PO PRN (10:14)
[2018-05-27] MEDS ORDERED: Potassium Chlor 20 mEq Premix 20 MEQ/100 ML PIGGYBACK IV.SIG PRN ×2 (10:14)
[2018-05-27] MEDS ORDERED: Potassium Chloride 25 MEQ Effervescent Tablet PO PRN (10:14)
[2018-05-27] MEDS ORDERED: Potassium Phosphate 500 MG Soluble Tablet PO PRN ×2 (10:14)
[2018-05-27] MEDS ORDERED: Magnesium Sulfate Inj 2 GM in Sodium Chlor 0.9% Inj 96 ML IV.SIG PRN (10:14)
[2018-05-27] MEDS ORDERED: Magnesium Sulfate Inj 4 GM in Sodium Chlor 0.9% Inj 92 ML IV.SIG PRN (10:14)
[2018-05-27] MEDS ORDERED: Potassium Phosphate Inj 30 MMOL in Sodium Chlor 0.9% Inj 250 ML IV.SIG PRN (10:14)
[2018-05-27] MEDS ORDERED: Sodium Phosphate Inj 30 MMOL in Sodium Chlor 0.9% Inj 250 ML IV.SIG PRN (10:14)
[2018-05-27] MEDS: Heparin Drip 25,000 UNIT/250 ML BAG IV.CONT PRN (12:09)
[2018-05-27 12:35] LABS: Hematocrit 30.5 % (35.0-46.0); Hemoglobin 9.8 gm/dL (11.6-15.3); Mean Corpuscular HGB Conc 32.1 % (32.0-36.0); Mean Corpuscular Hemoglobin 27.6 pg (27.0-34.0); Mean Corpuscular Volume 85.9 fL (80.0-100.0); Mean Platelet Volume 10.6 fL (7.0-11.0); Platelet Count 142 th/mm3 (150-450); Red Blood Count 3.56 mil/mm3 (4.00-5.30); Red Cell Distribution Width 16.9 % (11.6-17.2); White Blood Count 7.6 th/mm3 (4.0-11.0)
[2018-05-27 12:55] LABS: Activated Partial Thrombo Time 25.7 sec (24.3-30.1)
--- NOTE | 2018-05-27 13:41 | P.PNONC ---
Subjective Interval history: Afebrile Patient resting in bed in no obvious distress Complains of diffuse headache but states this feels similar to headaches she normally gets Denies bleeding gums Feels short of breath however reports this is improved since admission Objective Vital Signs/Intake & Output: Vital Signs 05/26/18 13:45 05/26/18 14:00 05/26/18 14:15 Temperature 97 F L Pulse Rate 107 H 92 H 94 H Respiratory Rate 18 18 18 Blood Pressure 115/65 113/72 114/69 Pulse Oximetry 95 97 98 05/26/18 14:30 05/26/18 14:37 05/26/18 14:45 Temperature Pulse Rate 92 H 96 H 92 H Respiratory Rate 18 17 14 Blood Pressure 115/68 113/70 Pulse Oximetry 98 99 99 05/26/18 15:00 05/26/18 15:15 05/26/18 15:30 Temperature Pulse Rate 111 H 92 H 92 H Respiratory Rate 20 23 18 Blood Pressure 118/73 114/64 Pulse Oximetry 100 98 99 05/26/18 15:45 05/26/18 16:00 05/26/18 16:30 Temperature 98 F Pulse Rate 94 H 100 H 92 H Respiratory Rate 21 20 10 L Blood Pressure 118/67 126/67 114/74 Pulse Oximetry 99 96 96 05/26/18 17:00 05/26/18 17:30 05/26/18 18:00 Temperature Pulse Rate 91 H 94 H 98 H Respiratory Rate 9 L 15 22 Blood Pressure 118/71 117/71 104/76 Pulse Oximetry 95 93 L 93 L 05/26/18 18:30 05/26/18 19:00 05/26/18 19:04 Temperature Pulse Rate 84 90 90 Respiratory Rate 13 15 20 Blood Pressure 106/62 108/68 Pulse Oximetry 95 96 96 05/26/18 19:30 05/26/18 20:00 05/26/18 20:30 Temperature 98.1 F Pulse Rate 80 77 80 Respiratory Rate 16 16 19 Blood Pressure 100/71 106/78 105/78 Pulse Oximetry 96 97 97 05/26/18 20:34 05/26/18 21:00 05/26/18 21:30 Temperature Pulse Rate 83 82 82 Respiratory Rate 16 20 16 Blood Pressure 105/69 102/61 Pulse Oximetry 96 94 L 94 L 05/26/18 21:52 05/26/18 22:00 07/16/18 22:06 Temperature Pulse Rate 82 82 Respiratory Rate 18 17 Blood Pressure 101/56 L Pulse Oximetry 92 L 05/26/18 22:30 05/26/18 23:00 05/26/18 23:30 Temperature Pulse Rate 79 82 77 Respiratory Rate 13 16 12 Blood Pressure 95/62 L 96/65 L 100/67 Pulse Oximetry 94 L 96 95 05/27/18 00:00 05/27/18 00:01 05/27/18 00:25 Temperature 97.9 F Pulse Rate 78 78 78 Respiratory Rate 13 14 16 Blood Pressure 118/65 118/65 Pulse Oximetry 95 95 05/27/18 00:30 05/27/18 01:00 05/27/18 01:30 Temperature Pulse Rate 78 80 77 Respiratory Rate 13 11 L 10 L Blood Pressure 108/78 110/63 114/65 Pulse Oximetry 97 95 96 05/27/18 02:00 05/27/18 02:30 05/27/18 03:00 Temperature Pulse Rate 77 73 73 Respiratory Rate 13 20 15 Blood Pressure 107/66 108/56 L 115/67 Pulse Oximetry 95 96 96 05/27/18 03:30 05/27/18 04:00 05/27/18 04:09 Temperature 98.7 F Pulse Rate 80 74 77 Respiratory Rate 14 10 L 16 Blood Pressure 109/67 98/68 L Pulse Oximetry 95 95 05/27/18 04:30 05/27/18 05:00 05/27/18 05:30 Temperature Pulse Rate 79 90 81 Respiratory Rate 11 L 19 13 Blood Pressure 106/64 136/73 113/61 Pulse Oximetry 94 L 90 L 91 L 05/27/18 06:00 05/27/18 06:30 05/27/18 07:00 Temperature Pulse Rate 72 73 75 Respiratory Rate 10 L Blood Pressure 101/59 L 89/64 L Pulse Oximetry 91 L 93 L 94 L 05/27/18 07:01 05/27/18 07:30 05/27/18 08:00 Temperature Pulse Rate 72 73 74 Respiratory Rate 17 Blood Pressure 109/61 111/58 L 109/75 Pulse Oximetry 94 L 94 L 94 L 05/27/18 08:01 05/27/18 08:30 05/27/18 09:00 Temperature Pulse Rate 69 83 84 Respiratory Rate 12 19 20 Blood Pressure 95/70 L 104/55 L Pulse Oximetry 95 92 L 94 L 05/27/18 09:30 05/27/18 10:00 05/27/18 10:30 Temperature Pulse Rate 73 78 78 Respiratory Rate 13 17 11 L Blood Pressure 107/70 108/69 101/58 L Pulse Oximetry 94 L 91 L 94 L 05/27/18 11:00 05/27/18 11:16 05/27/18 11:30 Temperature Pulse Rate 76 87 86 Respiratory Rate 12 12 16 Blood Pressure 108/58 L 108/58 L Pulse Oximetry 91 L 91 L 05/27/18 12:00 Temperature Pulse Rate 87 Respiratory Rate 19 Blood Pressure 104/81 Pulse Oximetry 89 L Intake & Output 05/26/18 05/27/18 05/27/18 18:59 06:59 18:59 Intake Total 262.5 / 262.5 1999 950 / 950 Balance 262.5 / 262.5 1999 950 / 950 Weight 228 lb 2.855 oz 228 lb 2.855 oz Intake: IV 12.5 / 12.5 1999 950 / 950 Cathflo Activase Inj 10 MG In 1000 / 1000 830 / 830 NS Inj 500 ML @ Per Protocol 100 mls/hr I-CATHETER TITRATE PRN Rx#:[id number] D5W/Normal Saline Inj 1,000 ML 1000 / 1000 @ 84 mls/hr IV.CONT .[id number] [facility] Rx#:[id number] Heparin/D5W 25,000 U/250 mL 25, 12.5 / 12.5 120 / 120 000 unit In 250 ml @ 5 mls/hr IV.CONT .Q24H [facility] Rx#:[id number] Oral 250 / 250 Other: Weight On Admission 228 lb 2.855 oz Result Diagrams: 05/27/18 11:30 05/27/18 05:36 Laboratory Results: Laboratory Results - last 24 hr 05/26/18 05/26/18 05/26/18 13:30 15:05 15:05 WBC RBC Hgb Hct MCV MCH MCHC RDW Plt Count MPV Neut % (Auto) Lymph % (Auto) [place] % (Auto) Eos % (Auto) Baso % (Auto) Neut # (Auto) Lymph # (Auto) [place] # (Auto) Eos # (Auto) Baso # (Auto) WBC Differential Differential Comment APTT Thrombin Time Cancelled Fibrinogen Lupus Anticoagulant Cancelled LA PTT Screen Cancelled dRVVT Screen Cancelled LA dRVVT Confirm Cancelled dRVVT Mix Cancelled Hexagonal Phase Confirm Cancelled Sodium Potassium Chloride Carbon Dioxide Anion Gap BUN Creatinine Estimated GFR POC Glucose Random Glucose Calcium Total Bilirubin AST ALT Alkaline Phosphatase Total Protein Albumin Nasal Screen MRSA (PCR) Not detected Anti-Cardiolipin IgG Ab Cancelled Anti-Cardiolipin IgM Ab Cancelled Hep Bs Antigen Hep B Core IgM Ab Hep C IgG Ab 05/26/18 05/26/18 05/26/18 17:50 17:50 17:56 WBC 6.7 RBC 3.68 L Hgb 10.4 L Hct 31.6 L MCV 85.9 MCH 28.4 MCHC 33.0 RDW 16.8 Plt Count 170 MPV 10.6 Neut % (Auto) 49.7 Lymph % (Auto) 41.7 Newton % (Auto) 7.0 Eos % (Auto) 0.7 Baso % (Auto) 0.9 Neut # (Auto) 3.3 Lymph # (Auto) 2.8 Newton # (Auto) 0.5 Eos # (Auto) 0.0 Baso # (Auto) 0.1 WBC Differential . Differential Comment Auto diff final APTT 25.0 Thrombin Time Fibrinogen 278 Lupus Anticoagulant LA PTT Screen dRVVT Screen LA dRVVT Confirm dRVVT Mix Hexagonal Phase Confirm Sodium Potassium Chloride Carbon Dioxide Anion Gap BUN Creatinine Estimated GFR POC Glucose 117 H Random Glucose Calcium Total Bilirubin AST ALT Alkaline Phosphatase Total Protein Albumin Nasal Screen MRSA (PCR) Anti-Cardiolipin IgG Ab Anti-Cardiolipin IgM Ab Hep Bs Antigen Hep B Core IgM Ab Hep C IgG Ab 05/26/18 05/26/18 05/26/18 18:45 23:36 23:36 WBC 6.3 RBC 3.47 L Hgb 10.0 L Hct 29.9 L MCV 86.1 MCH 28.6 MCHC 33.3 RDW 16.7 Plt Count 153 MPV 9.7 Neut % (Auto) 53.6 Lymph % (Auto) 38.0 Newton % (Auto) 6.5 Eos % (Auto) 1.0 Baso % (Auto) 0.9 Neut # (Auto) 3.4 Lymph # (Auto) 2.4 Newton # (Auto) 0.4 Eos # (Auto) 0.1 Baso # (Auto) 0.1 WBC Differential . Differential Comment Auto diff final APTT 25.8 Thrombin Time Fibrinogen 223 L Lupus Anticoagulant LA PTT Screen dRVVT Screen LA dRVVT Confirm dRVVT Mix Hexagonal Phase Confirm Sodium Potassium Chloride Carbon Dioxide Anion Gap BUN Creatinine Estimated GFR POC Glucose Random Glucose Calcium Total Bilirubin AST ALT Alkaline Phosphatase Total Protein Albumin Nasal Screen MRSA (PCR) Anti-Cardiolipin IgG Ab Anti-Cardiolipin IgM Ab Hep Bs Antigen Nonreactive Hep B Core IgM Ab Nonreactive Hep C IgG Ab Nonreactive 05/26/18 05/27/18 05/27/18 23:38 05:36 05:36 WBC 6.8 RBC 3.55 L Hgb 9.9 L Hct 30.8 L MCV 86.8 MCH 27.9 MCHC 32.2 RDW 16.8 Plt Count 154 MPV 9.8 Neut % (Auto) 50.3 Lymph % (Auto) 39.3 Newton % (Auto) 7.3 Eos % (Auto) 2.4 Baso % (Auto) 0.7 Neut # (Auto) 3.4 Lymph # (Auto) 2.7 [place] # (Auto) 0.5 Eos # (Auto) 0.2 Baso # (Auto) 0.0 WBC Differential . Differential Comment Auto diff final APTT 25.2 Thrombin Time Fibrinogen 211 L Lupus Anticoagulant LA PTT Screen dRVVT Screen LA dRVVT Confirm dRVVT Mix Hexagonal Phase Confirm Sodium Potassium Chloride Carbon Dioxide Anion Gap BUN Creatinine Estimated GFR POC Glucose 137 H Random Glucose Calcium Total Bilirubin AST ALT Alkaline Phosphatase Total Protein Albumin Nasal Screen MRSA (PCR) Anti-Cardiolipin IgG Ab Anti-Cardiolipin IgM Ab Hep Bs Antigen Hep B Core IgM Ab Hep C IgG Ab 05/27/18 05/27/18 05/27/18 05:36 05:37 11:30 WBC 7.6 RBC 3.56 L Hgb 9.8 L Hct 30.5 L MCV 85.9 MCH 27.6 MCHC 32.1 RDW 16.9 Plt Count 142 L MPV 10.6 Neut % (Auto) Lymph % (Auto) Newton % (Auto) Eos % (Auto) Baso % (Auto) Neut # (Auto) Lymph # (Auto) [place] # (Auto) Eos # (Auto) Baso # (Auto) WBC Differential Differential Comment APTT Thrombin Time Fibrinogen Lupus Anticoagulant LA PTT Screen dRVVT Screen LA dRVVT Confirm dRVVT Mix Hexagonal Phase Confirm Sodium 143 Potassium 3.4 L Chloride 110 H Carbon Dioxide 22.0 Anion Gap 11 BUN 13 Creatinine 0.56 Estimated GFR Greater than 89 POC Glucose 135 H Random Glucose 126 H Calcium 8.1 L Total Bilirubin 0.3 AST 32 ALT 62 H Alkaline Phosphatase 99 Total Protein 6.0 L D Albumin 2.8 L D Nasal Screen MRSA (PCR) Anti-Cardiolipin IgG Ab Anti-Cardiolipin IgM Ab Hep Bs Antigen Hep B Core IgM Ab Hep C IgG Ab 05/27/18 05/27/18 11:30 11:34 WBC RBC Hgb Hct MCV MCH MCHC RDW Plt Count MPV Neut % (Auto) Lymph % (Auto) [place] % (Auto) Eos % (Auto) Baso % (Auto) Neut # (Auto) Lymph # (Auto) [place] # (Auto) Eos # (Auto) Baso # (Auto) WBC Differential Differential Comment APTT 25.7 Thrombin Time Fibrinogen 211 L Lupus Anticoagulant LA PTT Screen dRVVT Screen LA dRVVT Confirm dRVVT Mix Hexagonal Phase Confirm Sodium Potassium Chloride Carbon Dioxide Anion Gap BUN Creatinine Estimated GFR POC Glucose 166 H Random Glucose Calcium Total Bilirubin AST ALT Alkaline Phosphatase Total Protein Albumin Nasal Screen MRSA (PCR) Anti-Cardiolipin IgG Ab Anti-Cardiolipin IgM Ab Hep Bs Antigen Hep B Core IgM Ab Hep C IgG Ab Imaging Studies: Impressions Liver Ultrasound 05/26/18 00:00 CONCLUSION: The liver is slightly echogenic which may be due to fatty infiltration and or hepatocellular dysfunction. Central Venous Line 05/26/18 09:55 CONCLUSION: 1. Uncomplicated line placement as above. Medications: Active Medications Generic Name Dose Route Start Last Admin Trade Name Freq PRN Reason Stop Dose Admin Albuterol 1 ampul 05/26/18 16:00 05/27/18 11:15 Duoneb Neb (Mae) NEB 1 ampul Q4HR NEB MAE Administration Chlorhexidine Gluconate 3 pack 05/27/18 04:00 05/27/18 03:59 Chlorhexidine 2% Cloth TOPICAL 06/01/18 03:59 3 pack DAILY@0400 MAE Administration Eszopiclone 2 mg 05/26/18 17:30 05/26/18 20:41 Lunesta PO 2 mg HS PRN Administration SLEEP Famotidine 20 mg 05/26/18 13:45 05/27/18 08:20 Pepcid PO 20 mg BID MAE Administration Dextrose/Sodium Chloride 1,000 mls @ 84 mls/hr 05/26/18 14:00 05/27/18 02:19 D5w/Normal Saline Inj IV.CONT 84 mls/hr .[id number] [facility] Administration Heparin Sodium/Dextrose 25,000 unit in 250 mls @ 0 mls/hr 05/27/18 13:00 12:09 Heparin/D5w 25,000 U/250 Ml IV.CONT 1,800 units/hr TITRATE PRN 18 mls/hr Per Protocol Administration Protocol Per Protocol Insulin Human Regular 0 units 05/26/18 18:00 05/27/18 11:47 Novolin R Correctional Sugar Inj SQ Not Given Q6HR [facility] Protocol Morphine Sulfate 2 mg 05/26/18 15:32 05/26/18 23:58 Morphine Inj IV.PUSH 2 mg Q1H PRN Administration PAIN 1 TO 4 Morphine Sulfate 4 mg 05/26/18 15:33 05/27/18 10:07 Morphine Inj IV.PUSH 4 mg Q1H PRN Administration PAIN 5 TO 10 Ondansetron HCl 4 mg 05/26/18 20:26 05/26/18 20:42 Zofran Inj IV.PUSH 4 mg Q6H PRN Administration NAUSEA OR VOMITING Potassium Bicarb/Potassium Chloride 50 meq 05/27/18 10:14 05/27/18 11:09 K-Lyte Cl Eff PO 50 meq UNSCH PRN Administration For Potassium 3.3 - 3.5 mEq/L Senna/Docusate Sodium 1 tab 05/26/18 21:00 05/27/18 08:22 Ina-Colace PO Not Given BID [facility] Sodium Chloride 2 ml 05/26/18 08:45 05/27/18 08:20 Ns Flush IV.FLUSH 2 ml PRN PRN Administration FLUSH AFTER USING IV ACCESS Objective Remarks: GENERAL: Young female resting in bed in no obvious distress SKIN: Warm and dry. R IJ TLC. Mild oozing noted to dressing. HEAD: Normocephalic. EYES: No scleral icterus. No injection or drainage. NECK: Supple, trachea midline. No JVD or lymphadenopathy. CARDIOVASCULAR: Regular rate and rhythm without murmurs. 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 RESPIRATORY: Clear anteriorly. On 4 L nasal cannula. GASTROINTESTINAL: Abdomen soft, non-tender, nondistended. EXTREMITIES: No cyanosis. Right lower extremity edema MUSCULOSKELETAL: Adequate muscle tone. NEUROLOGICAL: No obvious focal deficit. Awake, alert, and oriented x3. Assessment/Plan - Plan 43-year-old female with history of factor V Leiden admitted with large burden pulmonary embolism requiring TPA 1. TPA and heparin infusion continues. Once TPA has finished she will continue on heparin drip. 2. Ideally would like to see heparin be therapeutic for 24 hours prior to transition to p.o. anticoagulation 3. Monitor for bleeding 4. Monitor CBC, APTT - Attending Statement The exam, history, and the medical decision-making described in the above note were completed with the assistance of the mid-level provider. I reviewed and agree with the findings presented. I attest that I had a [id number] encounter with the patient on the same day, and personally performed and documented my assessment and findings in the medical record. C/O Severe MCCLURE, Just came back from CT brain, at bedside. sob and cp have improved. on heparin. Extensive d/w pt and . d/w RN CT brain = no hemorrhage Pt has h/o migraine. Primary team to address.
[2018-05-27] MEDS: Sod Chloride 0.9% Inj 1,000 ML IV.SIG SCH (14:23)
[2018-05-27 14:54] LABS: Hepatitis A IgM Antibody Nonreactive (Nonreactive)
--- NOTE | 2018-05-27 19:14 | CT ---
EXAM DATE: 05/27/2018 6:50 PM EDT AGE/SEX: 43 years / Female INDICATIONS: Headache post TPA; rule out bleed. CLINICAL DATA: This is the patient's initial encounter. Patient reports that signs and symptoms have been present for 1 day and indicates a pain score of 5/10. MEDICAL/SURGICAL HISTORY: None. Appendectomy. Cholecystectomy. Gastric bypass. RADIATION DOSE: 51.57 CTDI (mGy) COMPARISON: No prior exams available for comparison. TECHNIQUE: CT of the head without contrast. Using automated exposure control and adjustment of the mA and/or kV according to patient size, radiation dose was kept as low as reasonably achievable to ob tain optimal diagnostic quality images. DICOM format image data is available electronically for revi ew and comparison. FINDINGS: Cerebrum: The ventricles are normal for age. No evidence of midline shift, mass lesion, hemorrhage or acute infarction. No extraaxial fluid collections are seen. Posterior Fossa: The cerebellum and brainstem are intact. The 4th ventricle is midline. The cerebe llopontine angle is unremarkable. Extracranial: The visualized portion of the orbits is intact. Skull: The calvaria is intact. No evidence of skull fracture. CONCLUSION: 1. No acute findings in the brain. No evidence of hemorrhage. Electronically signed by: Keaton Epps MD 05/27/2018 7:13 PM EDT
[2018-05-28] MEDS: Morphine Inj 4 MG/ML Vial IV.PUSH PRN ×5 (00:13→22:37)
[2018-05-28] MEDS: Sod Chloride 0.9% Inj 1,000 ML IV.SIG SCH ×2 (01:16→13:35)
[2018-05-28] MEDS: Heparin Drip 25,000 UNIT/250 ML BAG IV.CONT PRN ×2 (02:34→18:27)
[2018-05-28] MEDS: Insulin NovoLIN Regular Correctional Sugar Inj SQ SCH ×2 (04:14→07:08)
[2018-05-28] MEDS: Chlorhexidine Gluconate 2% 1 Pack (2 Cloths) TOPICAL SCH (04:14)
[2018-05-28 06:43] LABS: Hematocrit 29.6 % (35.0-46.0); Hemoglobin 9.6 gm/dL (11.6-15.3); Mean Corpuscular HGB Conc 32.3 % (32.0-36.0); Mean Corpuscular Hemoglobin 27.7 pg (27.0-34.0); Mean Corpuscular Volume 85.9 fL (80.0-100.0); Mean Platelet Volume 10.6 fL (7.0-11.0); Platelet Count 176 th/mm3 (150-450); Red Blood Count 3.45 mil/mm3 (4.00-5.30)
[2018-05-28 06:55] LABS: Anion Gap 8 meq/L (5-15); Blood Urea Nitrogen 5 mg/dL (7-18); Calcium 8.1 mg/dL (8.5-10.1); Carbon Dioxide 25.5 meq/L (21.0-32.0); Chloride 109 meq/L (98-107); Glomerular Filtration Rate Greater Than 89 mL/min (>89); Glucose,Random 100 mg/dL (74-106); Potassium 3.7 meq/L (3.5-5.1); Sodium 142 meq/L (136-145)
[2018-05-28] MEDS: Senna/Docusate Sodium 8.6/50 MG Tablet PO SCH ×2 (09:05→20:11)
[2018-05-28] MEDS: Famotidine 20 MG Tablet PO SCH ×2 (09:05→20:10)
[2018-05-28] MEDS ORDERED: Naloxone Inj 0.4 MG/ML Vial IV.PUSH PRN (12:55)
[2018-05-28] MEDS ORDERED: Acetaminophen 325 MG Tablet PO PRN (12:55)
--- NOTE | 2018-05-28 13:02 | P.PNIM ---
Subjective Interval history: Breathing better, is now able to walk without significant shortness of breath. Just completed a walk fit test. Physical Exam Vital signs: Vital Signs 05/27/18 13:00 05/27/18 13:30 05/27/18 14:00 Temperature Pulse Rate 82 110 H 98 H Respiratory Rate 13 27 H 18 Blood Pressure 100/65 147/73 H Pulse Oximetry 90 L 87 L 88 L Pulse Oximetry [Exertion with Oxygen] Pulse Oximetry [Resting on Room Air] Pulse Oximetry [Resting with Oxygen] 05/27/18 14:02 05/27/18 15:00 05/27/18 15:01 Temperature 97.6 F Pulse Rate 101 H 88 89 Respiratory Rate 12 14 15 Blood Pressure 133/60 104/60 Pulse Oximetry 87 L 90 L 92 L Pulse Oximetry [Exertion with Oxygen] Pulse Oximetry [Resting on Room Air] Pulse Oximetry [Resting with Oxygen] 05/27/18 15:22 05/27/18 16:00 05/27/18 17:00 Temperature Pulse Rate 97 H 98 H 101 H Respiratory Rate 21 14 21 Blood Pressure 110/62 124/60 Pulse Oximetry 92 L 93 L Pulse Oximetry [Exertion with Oxygen] Pulse Oximetry [Resting on Room Air] Pulse Oximetry [Resting with Oxygen] 05/27/18 17:56 05/27/18 18:00 05/27/18 18:24 Temperature Pulse Rate 94 H 98 H 95 H Respiratory Rate 17 20 Blood Pressure 116/62 129/71 Pulse Oximetry 91 L 92 L Pulse Oximetry [Exertion with Oxygen] Pulse Oximetry [Resting on Room Air] Pulse Oximetry [Resting with Oxygen] 05/27/18 19:00 05/27/18 19:35 05/27/18 19:59 Temperature Pulse Rate 89 93 H 97 H Respiratory Rate 15 18 20 Blood Pressure 114/55 L Pulse Oximetry 92 L 92 L Pulse Oximetry [Exertion with Oxygen] Pulse Oximetry [Resting on Room Air] Pulse Oximetry [Resting with Oxygen] 05/27/18 20:00 05/27/18 21:00 05/27/18 22:00 Temperature 98.1 F Pulse Rate 90 118 H 96 H Respiratory Rate 15 20 13 Blood Pressure 108/59 L 122/60 Pulse Oximetry 95 89 L 98 Pulse Oximetry [Exertion with Oxygen] Pulse Oximetry [Resting on Room Air] Pulse Oximetry [Resting with Oxygen] 05/27/18 22:01 05/27/18 23:00 05/27/18 23:55 Temperature Pulse Rate 99 H 91 H 96 H Respiratory Rate 13 13 20 Blood Pressure 131/60 115/57 L Pulse Oximetry 98 100 Pulse Oximetry [Exertion with Oxygen] Pulse Oximetry [Resting on Room Air] Pulse Oximetry [Resting with Oxygen] 05/27/18 23:56 05/28/18 00:00 05/28/18 01:00 Temperature 99.1 F Pulse Rate 101 H 99 H Respiratory Rate 16 12 Blood Pressure 123/64 91/61 L Pulse Oximetry 100 99 95 Pulse Oximetry [Exertion with Oxygen] Pulse Oximetry [Resting on Room Air] Pulse Oximetry [Resting with Oxygen] 05/28/18 02:00 05/28/18 03:00 05/28/18 04:00 Temperature 98.5 F Pulse Rate 93 H 92 H 94 H Respiratory Rate 13 13 18 Blood Pressure 96/65 L 111/68 114/78 Pulse Oximetry 93 L 91 L 93 L Pulse Oximetry [Exertion with Oxygen] Pulse Oximetry [Resting on Room Air] Pulse Oximetry [Resting with Oxygen] 05/28/18 04:20 05/28/18 05:00 05/28/18 06:00 Temperature Pulse Rate 94 H 111 H 99 H Respiratory Rate 18 25 H 13 Blood Pressure 122/68 107/67 Pulse Oximetry 94 L 94 L 93 L Pulse Oximetry [Exertion with Oxygen] Pulse Oximetry [Resting on Room Air] Pulse Oximetry [Resting with Oxygen] 05/28/18 07:00 05/28/18 08:00 05/28/18 08:33 Temperature Pulse Rate 94 H 96 H Respiratory Rate 14 18 Blood Pressure 105/64 113/62 Pulse Oximetry 91 L 92 L 96 Pulse Oximetry [Exertion with Oxygen] Pulse Oximetry [Resting on Room Air] Pulse Oximetry [Resting with Oxygen] 05/28/18 09:00 05/28/18 09:01 05/28/18 10:00 Temperature Pulse Rate 100 H 98 H 101 H Respiratory Rate 20 20 16 Blood Pressure 135/64 109/59 L Pulse Oximetry 97 98 91 L Pulse Oximetry [Exertion with Oxygen] Pulse Oximetry [Resting on Room Air] Pulse Oximetry [Resting with Oxygen] 05/28/18 11:00 05/28/18 12:00 05/28/18 12:04 Temperature Pulse Rate 99 H 109 H Respiratory Rate 18 Blood Pressure 115/57 L Pulse Oximetry 90 L 99 Pulse Oximetry [Exertion with Oxygen] Pulse Oximetry [Resting on Room Air] Pulse Oximetry [Resting with Oxygen] 05/28/18 12:09 05/28/18 12:30 Temperature Pulse Rate 102 H Respiratory Rate 19 Blood Pressure 134/66 Pulse Oximetry 100 Pulse Oximetry [Exertion with Oxygen] 93 L Pulse Oximetry [Resting on Room Air] 87 L Pulse Oximetry [Resting with Oxygen] 96 Intake & Output 05/27/18 05/28/18 05/28/18 18:59 06:59 18:59 Intake Total 2950 / 2950 1490 / 1490 Output Total 400 / 400 Balance 2950 / 2950 1090 / 1090 Weight 103.5 kg Intake: IV 1950 / 1950 1250 / 1250 Cathflo Activase Inj 10 MG In 830 / 830 NS Inj 500 ML @ Per Protocol 100 mls/hr I-CATHETER TITRATE PRN Rx#:[id number] D5W/Normal Saline Inj 1,000 ML 1000 / 1000 @ 84 mls/hr IV.CONT .[id number] [facility] Rx#:[id number] Heparin/D5W 25,000 U/250 mL 25, 120 / 120 250 / 250 000 unit In 250 ml @ Per Protocol IV.CONT TITRATE PRN Rx #:[id number] NS Inj 1,000 ML @ 84 mls/hr IV. 1000 / 1000 SIG .[id number] [facility] Rx#:[id number] Oral 1000 / 1000 240 / 240 Output: Urine 400 / 400 Other: # Voids 1 # Bowel Movements 0 Narrative: GENERAL: This is a well-nourished, well-developed patient, in no apparent distress. CARDIOVASCULAR: Regular rate and rhythm RESPIRATORY: few right sides crackles GASTROINTESTINAL: Abdomen soft, non-tender, nondistended. Normal active bowel sounds NEURO: Alert & Oriented x4 to person, place, time, situation. Moves all ext x4 Results - Labs CBC & Chem 7: 05/28/18 06:00 05/28/18 06:00 Laboratory Results - last 24 hr 05/26/18 05/26/18 05/27/18 15:05 18:45 17:17 WBC RBC Hgb Hct MCV MCH MCHC RDW Plt Count MPV APTT 65.0 H D Protein S Activity 77 Sodium Potassium Chloride Carbon Dioxide Anion Gap BUN Creatinine Estimated GFR POC Glucose Random Glucose Calcium Hepatitis A IgM Ab Nonreactive 05/27/18 05/27/18 05/27/18 17:27 19:54 23:54 WBC RBC Hgb Hct MCV MCH MCHC RDW Plt Count MPV APTT Protein S Activity Sodium Potassium Chloride Carbon Dioxide Anion Gap BUN Creatinine Estimated GFR POC Glucose 87 109 102 Random Glucose Calcium Hepatitis A IgM Ab 05/27/18 05/28/18 05/28/18 23:58 06:00 06:00 WBC 8.0 RBC 3.45 L Hgb 9.6 L Hct 29.6 L MCV 85.9 MCH 27.7 MCHC 32.3 RDW 17.0 Plt Count 176 MPV 10.6 APTT 76.0 H Protein S Activity Sodium 142 Potassium 3.7 Chloride 109 H Carbon Dioxide 25.5 Anion Gap 8 BUN 5 L Creatinine 0.54 Estimated GFR Greater than 89 POC Glucose Random Glucose 100 Calcium 8.1 L Hepatitis A IgM Ab 05/28/18 05/28/18 06:00 11:29 WBC RBC Hgb Hct MCV MCH MCHC RDW Plt Count MPV APTT 73.5 H Protein S Activity Sodium Potassium Chloride Carbon Dioxide Anion Gap BUN Creatinine Estimated GFR POC Glucose 116 H Random Glucose Calcium Hepatitis A IgM Ab - Imaging Impressions Head CT 05/27/18 00:00 CONCLUSION: 1. No acute findings in the brain. No evidence of hemorrhage. Assessment and Plan - Plan Assessment: 43y/o WF with Factor V Leiden and submassive PE with associated hypoxemia and RV strain. Submassive PE - s/p TPA infusion - heparin infusion - hematology consult - Dr. Hsu counseled patient on high risk of sudden cardiac x 2 weeks and 30% change of severe persistent pulmonary hypertension. RV strain - would be a good candidate for a short 4-6 week course of sildenafil, but currently borderline hypotensive so will not start this. - hemodynamically stable. - recommended to the patient to follow up with a fund accounting manager in [place] when she gets home. Factor V Leiden - anticoagulation as above - apprecriate hematology consult Acute hypoxemia - nc o2 for goal spo2 > 90% - OOB with assist after TPA off - I.S. to bedside. walkfit test with oxygen 87% RA and likely will need oxygen post discharge Morbid Obesity - advance diet to regular as tolerated Cephalgia - CT brain negative, will start tylenol and [place] as Morphine no alleviating pain duration. Dispo: - transfer out of ICU
--- NOTE | 2018-05-28 17:42 | P.PNONC ---
Subjective Interval history: n MCCLURE is better. hypoxia at Room O2 Objective Vital Signs/Intake & Output: Vital Signs 05/27/18 17:56 05/27/18 18:00 05/27/18 18:24 Temperature Pulse Rate 94 H 98 H 95 H Respiratory Rate 17 20 Blood Pressure 116/62 129/71 Pulse Oximetry 91 L 92 L Pulse Oximetry [Exertion with Oxygen] Pulse Oximetry [Resting on Room Air] Pulse Oximetry [Resting with Oxygen] 05/27/18 19:00 05/27/18 19:35 05/27/18 19:59 Temperature Pulse Rate 89 93 H 97 H Respiratory Rate 15 18 20 Blood Pressure 114/55 L Pulse Oximetry 92 L 92 L Pulse Oximetry [Exertion with Oxygen] Pulse Oximetry [Resting on Room Air] Pulse Oximetry [Resting with Oxygen] 05/27/18 20:00 05/27/18 21:00 05/27/18 22:00 Temperature 98.1 F Pulse Rate 90 118 H 96 H Respiratory Rate 15 20 13 Blood Pressure 108/59 L 122/60 Pulse Oximetry 95 89 L 98 Pulse Oximetry [Exertion with Oxygen] Pulse Oximetry [Resting on Room Air] Pulse Oximetry [Resting with Oxygen] 05/27/18 22:01 05/27/18 23:00 05/27/18 23:55 Temperature Pulse Rate 99 H 91 H 96 H Respiratory Rate 13 13 20 Blood Pressure 131/60 115/57 L Pulse Oximetry 98 100 Pulse Oximetry [Exertion with Oxygen] Pulse Oximetry [Resting on Room Air] Pulse Oximetry [Resting with Oxygen] 05/27/18 23:56 05/28/18 00:00 05/28/18 01:00 Temperature 99.1 F Pulse Rate 101 H 99 H Respiratory Rate 16 12 Blood Pressure 123/64 91/61 L Pulse Oximetry 100 99 95 Pulse Oximetry [Exertion with Oxygen] Pulse Oximetry [Resting on Room Air] Pulse Oximetry [Resting with Oxygen] 05/28/18 02:00 05/28/18 03:00 05/28/18 04:00 Temperature 98.5 F Pulse Rate 93 H 92 H 94 H Respiratory Rate 13 13 18 Blood Pressure 96/65 L 111/68 114/78 Pulse Oximetry 93 L 91 L 93 L Pulse Oximetry [Exertion with Oxygen] Pulse Oximetry [Resting on Room Air] Pulse Oximetry [Resting with Oxygen] 05/28/18 04:20 07/18/18 05:00 05/28/18 06:00 Temperature Pulse Rate 94 H 111 H 99 H Respiratory Rate 18 25 H 13 Blood Pressure 122/68 107/67 Pulse Oximetry 94 L 94 L 93 L Pulse Oximetry [Exertion with Oxygen] Pulse Oximetry [Resting on Room Air] Pulse Oximetry [Resting with Oxygen] 05/28/18 07:00 05/28/18 08:00 05/28/18 08:33 Temperature Pulse Rate 94 H 96 H Respiratory Rate 14 18 Blood Pressure 105/64 113/62 Pulse Oximetry 91 L 92 L 96 Pulse Oximetry [Exertion with Oxygen] Pulse Oximetry [Resting on Room Air] Pulse Oximetry [Resting with Oxygen] 05/28/18 09:00 05/28/18 09:01 05/28/18 10:00 Temperature Pulse Rate 100 H 98 H 101 H Respiratory Rate 20 20 16 Blood Pressure 135/64 109/59 L Pulse Oximetry 97 98 91 L Pulse Oximetry [Exertion with Oxygen] Pulse Oximetry [Resting on Room Air] Pulse Oximetry [Resting with Oxygen] 05/28/18 11:00 05/28/18 12:00 05/28/18 12:04 Temperature Pulse Rate 99 H 109 H Respiratory Rate 18 Blood Pressure 115/57 L Pulse Oximetry 90 L 99 Pulse Oximetry [Exertion with Oxygen] Pulse Oximetry [Resting on Room Air] Pulse Oximetry [Resting with Oxygen] 05/28/18 12:09 05/28/18 12:30 05/28/18 13:00 Temperature Pulse Rate 102 H 117 H Respiratory Rate 19 20 Blood Pressure 134/66 121/57 L Pulse Oximetry 100 92 L Pulse Oximetry [Exertion with Oxygen] 93 L Pulse Oximetry [Resting on Room Air] 87 L Pulse Oximetry [Resting with Oxygen] 96 05/28/18 14:00 05/28/18 15:00 05/28/18 16:00 Temperature 98.1 F Pulse Rate 115 H 111 H 103 H Respiratory Rate 22 18 18 Blood Pressure 124/60 104/64 Pulse Oximetry 93 L 93 L 96 Pulse Oximetry [Exertion with Oxygen] Pulse Oximetry [Resting on Room Air] Pulse Oximetry [Resting with Oxygen] 05/28/18 16:13 05/28/18 16:15 Temperature Pulse Rate 118 H 116 H Respiratory Rate 25 H 22 Blood Pressure 147/118 H 137/60 Pulse Oximetry 93 L 94 L Pulse Oximetry [Exertion with Oxygen] Pulse Oximetry [Resting on Room Air] Pulse Oximetry [Resting with Oxygen] Intake & Output 05/27/18 05/28/18 05/28/18 18:59 06:59 18:59 Intake Total 2950 / 2950 1490 / 1490 1000 / 1000 Output Total 400 / 400 Balance 2950 / 2950 1090 / 1090 1000 / 1000 Weight 103.5 kg Intake: IV 1950 / 1950 1250 / 1250 1000 / 1000 Cathflo Activase Inj 10 MG In 830 / 830 NS Inj 500 ML @ Per Protocol 100 mls/hr I-CATHETER TITRATE PRN Rx#:[id number] D5W/Normal Saline Inj 1,000 ML 1000 / 1000 @ 84 mls/hr IV.CONT .[id number] MAE Rx#:[id number] Heparin/D5W 25,000 U/250 mL 25, 120 / 120 250 / 250 000 unit In 250 ml @ Per Protocol IV.CONT TITRATE PRN Rx #:[id number] NS Inj 1,000 ML @ 84 mls/hr IV. 1000 / 1000 1000 / 1000 SIG .[id number] MAE Rx#:[id number] Oral 1000 / 1000 240 / 240 Output: Urine 400 / 400 Other: # Voids 1 # Bowel Movements 0 Result Diagrams: 05/28/18 06:00 05/28/18 06:00 Laboratory Results: Laboratory Results - last 24 hr 05/27/18 05/27/1818 17:17 19:54 23:54 WBC RBC Hgb Hct MCV MCH MCHC RDW Plt Count MPV APTT 65.0 H D Sodium Potassium Chloride Carbon Dioxide Anion Gap BUN Creatinine Estimated GFR POC Glucose 109 102 Random Glucose Calcium 05/27/18 05/28/18 05/28/18 23:58 06:00 06:00 WBC 8.0 RBC 3.45 L Hgb 9.6 L Hct 29.6 L MCV 85.9 MCH 27.7 MCHC 32.3 RDW 17.0 Plt Count 176 MPV 10.6 APTT 76.0 H Sodium 142 Potassium 3.7 Chloride 109 H Carbon Dioxide 25.5 Anion Gap 8 BUN 5 L Creatinine 0.54 Estimated GFR Greater than 89 POC Glucose Random Glucose 100 Calcium 8.1 L 07/05/28/18 05/28/18 06:00 11:29 13:00 WBC RBC Hgb Hct MCV MCH MCHC RDW Plt Count MPV APTT 73.5 H 56.3 H D Sodium Potassium Chloride Carbon Dioxide Anion Gap BUN Creatinine Estimated GFR POC Glucose 116 H Random Glucose Calcium Imaging Studies: Impressions Head CT 05/27/18 00:00 CONCLUSION: 1. No acute findings in the brain. No evidence of hemorrhage. Medications: Active Medications Generic Name Dose Route Start Last Admin Trade Name Freq PRN Reason Stop Dose Admin Hydrocodone Bitart/Acetaminophen 1 tab 05/28/18 12:55 05/28/18 17:02 [place] 5/325 PO 1 tab Q4H PRN Administration PAIN SCALE 6 TO 10 Albuterol 1 ampul 05/26/18 16:00 05/28/18 04:19 Duoneb Neb (Mae) NEB 1 ampul Q4HR NEB MAE Administration Chlorhexidine Gluconate 3 pack 05/27/18 04:00 05/28/18 04:14 Chlorhexidine 2% Cloth TOPICAL 06/01/18 03:59 Not Given DAILY@0400 MAE Eszopiclone 2 mg 05/26/18 17:30 05/27/18 20:53 Lunesta PO 2 mg HS PRN Administration SLEEP Famotidine 20 mg 05/26/18 13:45 05/28/18 09:05 Pepcid PO 20 mg BID MAE Administration Heparin Sodium/Dextrose 25,000 unit in 250 mls @ 0 mls/hr 05/27/18 13:00 13:38 Heparin/D5w 25,000 U/250 Ml IV.CONT 1,600 units/hr TITRATE PRN 16 mls/hr Per Protocol Titration Protocol Per Protocol Sodium Chloride 1,000 mls @ 84 mls/hr 05/27/18 14:15 05/28/18 13:35 Ns Inj IV.SIG 84 mls/hr .[id number] MAE Administration Morphine Sulfate 2 mg 05/26/18 15:32 05/28/18 12:13 Morphine Inj IV.PUSH 2 mg Q1H PRN Administration PAIN 1 TO 4 Ondansetron HCl 4 mg 05/26/18 20:26 05/27/18 19:37 Zofran Inj IV.PUSH 4 mg Q6H PRN Administration NAUSEA OR VOMITING Senna/Docusate Sodium 1 tab 05/26/18 21:00 05/28/18 09:05 Ina-Colace PO Not Given BID MAE Sodium Chloride 2 ml 05/26/18 08:45 05/28/18 09:05 Ns Flush IV.FLUSH 2 ml PRN PRN Administration FLUSH AFTER USING IV ACCESS Objective Remarks: GENERAL: Well-nourished, well-developed patient. SKIN: Warm and dry. HEAD: Normocephalic. EYES: No scleral icterus. No injection or drainage. NECK: Supple, trachea midline. No JVD or lymphadenopathy. LYMPHATIC: No adenopathy. CARDIOVASCULAR: Regular rate and rhythm without murmurs. RESPIRATORY: Breath sounds equal bilaterally. No accessory muscle use. GASTROINTESTINAL: Abdomen soft, non-tender, nondistended. EXTREMITIES: No cyanosis, or edema. MUSCULOSKELETAL: Adequate muscle tone. NEUROLOGICAL: No obvious focal deficit. Awake, alert, and oriented x3. PSYCHIATRIC: Appropriate mood and affect; insight and judgment normal. Assessment/Plan (1) Factor V Leiden Code(s): D68.51 - Activated protein C resistance Status: Acute (2) Acute pulmonary embolus Code(s): I26.99 - Other pulmonary embolism without acute cor pulmonale Status : Acute (3) DVT (deep venous thrombosis) Code(s): I82.409 - Acute embolism and thrombosis of unspecified deep veins of unspecified lower extremity Status: Acute - Plan 43-year-old female with history of factor V Leiden admitted with large burden pulmonary embolism requiring TPA continue heparin. and transition to eliquis tomorrow. Pt is adamant to fly back home on sat. No HEAD OF MATHEMATICS bleed. MCCLURE is due to migraine. (2) Acute pulmonary embolus Qualifiers: Pulmonary embolism type: other Acute cor pulmonale presence: with acute cor pulmonale Qualified Code(s): I26.09 - Other pulmonary embolism with acute cor pulmonale (3) DVT (deep venous thrombosis) Qualifiers: DVT location: lower extremity Affected thrombotic vein of extremity: popliteal Chronicity: acute Laterality: right Qualified Code(s): I82.431 - Acute embolism and thrombosis of right popliteal vein
[2018-05-29] MEDS: Sod Chloride 0.9% Inj 1,000 ML IV.SIG SCH (00:47)
[2018-05-29] MEDS: Chlorhexidine Gluconate 2% 1 Pack (2 Cloths) TOPICAL SCH (04:22)
[2018-05-29 05:40] LABS: Hematocrit 29.8 % (35.0-46.0); Hemoglobin 8.9 gm/dL (11.6-15.3); Mean Corpuscular Hemoglobin 27.1 pg (27.0-34.0); Mean Corpuscular Volume 90.7 fL (80.0-100.0); Mean Platelet Volume 10.2 fL (7.0-11.0); Platelet Count 142 th/mm3 (150-450); Red Blood Count 3.28 mil/mm3 (4.00-5.30); Red Cell Distribution Width 17.6 % (11.6-17.2); White Blood Count 5.7 th/mm3 (4.0-11.0)
[2018-05-29 05:42] LABS: Mean Corpuscular HGB Conc 29.9 % (32.0-36.0)
[2018-05-29 06:18] LABS: Anion Gap 9 meq/L (5-15); Blood Urea Nitrogen 4 mg/dL (7-18); Calcium 7.6 mg/dL (8.5-10.1); Carbon Dioxide 20.3 meq/L (21.0-32.0); Chloride 112 meq/L (98-107); Glomerular Filtration Rate Greater Than 89 mL/min (>89); Glucose,Random 74 mg/dL (74-106); Potassium 4.7 meq/L (3.5-5.1); Sodium 141 meq/L (136-145)
[2018-05-29] MEDS: Famotidine 20 MG Tablet PO SCH ×2 (09:54→22:00)
[2018-05-29] MEDS: Senna/Docusate Sodium 8.6/50 MG Tablet PO SCH ×2 (10:11→22:00)
[2018-05-29] MEDS: Heparin Drip 25,000 UNIT/250 ML BAG IV.CONT PRN (10:12)
[2018-05-29 10:59] LABS: Factor V Leiden Mutation Heterozygous (Negative)
--- NOTE | 2018-05-29 11:53 | P.PNIM ---
Subjective Interval history: States that she really wants to be released tomorrow as she wants to drive back home to [place] to be able to close on a house. She states that she does well on 2 L however with physical exertion does desat and needs oxygen up to 4 L. She did do a walk fit test yesterday. She denies any chest pain. Physical Exam Vital signs: Vital Signs 05/28/18 12:00 05/28/18 12:04 05/28/18 12:09 Temperature Pulse Rate 109 H 102 H Respiratory Rate 19 Blood Pressure 134/66 Pulse Oximetry 99 100 Pulse Oximetry [Exertion with Oxygen] Pulse Oximetry [Resting on Room Air] Pulse Oximetry [Resting with Oxygen] 05/28/18 12:30 05/28/18 13:00 05/28/18 14:00 Temperature Pulse Rate 117 H 115 H Respiratory Rate 20 22 Blood Pressure 121/57 L 124/60 Pulse Oximetry 92 L 93 L Pulse Oximetry [Exertion with Oxygen] 93 L Pulse Oximetry [Resting on Room Air] 87 L Pulse Oximetry [Resting with Oxygen] 96 05/28/18 15:00 05/28/18 16:00 05/28/18 16:13 Temperature 98.1 F Pulse Rate 111 H 103 H 118 H Respiratory Rate 18 18 25 H Blood Pressure 104/64 147/118 H Pulse Oximetry 93 L 96 93 L Pulse Oximetry [Exertion with Oxygen] Pulse Oximetry [Resting on Room Air] Pulse Oximetry [Resting with Oxygen] 05/28/18 16:15 05/28/18 17:00 05/28/18 18:00 Temperature Pulse Rate 116 H 111 H 109 H Respiratory Rate 22 20 19 Blood Pressure 137/60 Pulse Oximetry 94 L 92 L 94 L Pulse Oximetry [Exertion with Oxygen] Pulse Oximetry [Resting on Room Air] Pulse Oximetry [Resting with Oxygen] 05/28/18 19:00 05/28/18 20:00 05/28/18 20:25 Temperature 98.4 F Pulse Rate 104 H 108 H 98 H Respiratory Rate 22 22 22 Blood Pressure 134/63 Pulse Oximetry 89 L 91 L 92 L Pulse Oximetry [Exertion with Oxygen] Pulse Oximetry [Resting on Room Air] Pulse Oximetry [Resting with Oxygen] 05/28/18 21:00 05/28/18 22:00 05/28/18 23:00 Temperature Pulse Rate 104 H 96 H 86 Respiratory Rate 20 20 12 Blood Pressure Pulse Oximetry 91 L 93 L 93 L Pulse Oximetry [Exertion with Oxygen] Pulse Oximetry [Resting on Room Air] Pulse Oximetry [Resting with Oxygen] 05/29/18 00:00 05/29/18 01:00 05/29/18 01:12 Temperature 98.1 F Pulse Rate 91 H 92 H 83 Respiratory Rate 14 18 16 Blood Pressure 105/62 Pulse Oximetry 92 L 93 L Pulse Oximetry [Exertion with Oxygen] Pulse Oximetry [Resting on Room Air] Pulse Oximetry [Resting with Oxygen] 05/29/18 02:00 05/29/18 03:00 05/29/18 04:00 Temperature 98.3 F Pulse Rate 91 H 82 84 Respiratory Rate 10 L 18 12 Blood Pressure 81/59 L Pulse Oximetry 92 L 97 94 L Pulse Oximetry [Exertion with Oxygen] Pulse Oximetry [Resting on Room Air] Pulse Oximetry [Resting with Oxygen] 05/29/18 04:59 05/29/18 06:00 05/29/18 08:00 Temperature Pulse Rate 86 82 115 H Respiratory Rate 16 Blood Pressure Pulse Oximetry Pulse Oximetry [Exertion with Oxygen] Pulse Oximetry [Resting on Room Air] Pulse Oximetry [Resting with Oxygen] 05/29/18 08:26 05/29/18 09:00 05/29/18 10:00 Temperature Pulse Rate 93 H 110 H 93 H Respiratory Rate 15 Blood Pressure Pulse Oximetry 100 Pulse Oximetry [Exertion with Oxygen] Pulse Oximetry [Resting on Room Air] Pulse Oximetry [Resting with Oxygen] 05/29/18 11:43 Temperature Pulse Rate 98 H Respiratory Rate 12 Blood Pressure Pulse Oximetry Pulse Oximetry [Exertion with Oxygen] Pulse Oximetry [Resting on Room Air] Pulse Oximetry [Resting with Oxygen] Intake & Output 05/28/18 05/29/18 05/29/18 18:59 06:59 18:59 Intake Total 1750 / 1750 1480 / 1480 250 / 250 Output Total 1800 / 1800 2300 / 2300 Balance -50 / -50 -820 / -820 250 / 250 Weight 103.5 kg Intake: IV 1250 / 1250 1000 / 1000 250 / 250 Heparin/D5W 25,000 U/250 mL 25, 250 / 250 250 / 250 000 unit In 250 ml @ Per Protocol IV.CONT TITRATE PRN Rx #:[id number] NS Inj 1,000 ML @ 84 mls/hr IV. 1000 / 1000 1000 / 1000 SIG .[id number] NORMA Rx#:[id number] Oral 500 / 500 480 / 480 Output: Urine 1800 / 1800 2300 / 2300 Narrative: GENERAL: This is a well-nourished, well-developed patient, in no apparent distress. CARDIOVASCULAR: Regular rate and rhythm RESPIRATORY: few right sides crackles GASTROINTESTINAL: Abdomen soft, non-tender, nondistended. Normal active bowel sounds NEURO: Alert & Oriented x4 to person, place, time, situation. Moves all ext x4 Results - Labs CBC & Chem 7: 05/29/18 04:12 05/29/18 04:12 Laboratory Results - last 24 hr 05/26/18 05/28/18 05/29/18 15:05 13:00 04:12 WBC 5.7 RBC 3.28 L Hgb 8.9 L Hct 29.8 L MCV 90.7 D MCH 27.1 MCHC 29.9 L RDW 17.6 H Plt Count 142 L MPV 10.2 APTT 56.3 H D Factor V Leiden Mutat Heterozygous Factor V Leiden Interp . Fact V Leiden Review By Ijeoma burgos m.d. Sodium Potassium Chloride Carbon Dioxide Anion Gap BUN Creatinine Estimated GFR Random Glucose Calcium 05/29/18 05/29/18 04:12 04:12 WBC RBC Hgb Hct MCV MCH MCHC RDW Plt Count MPV APTT 70.2 H D Factor V Leiden Mutat Factor V Leiden Interp Fact V Leiden Review By Sodium 141 Potassium 4.7 D Chloride 112 H Carbon Dioxide 20.3 L Anion Gap 9 BUN 4 L Creatinine 0.58 Estimated GFR Greater than 89 Random Glucose 74 Calcium 7.6 L - Imaging Impressions Chest X-Ray 05/26/18 08:45 CONCLUSION: No acute cardiopulmonary abnormality is identified. Assessment and Plan - Plan Assessment: 43y/o WF with Factor V Leiden and submassive PE with associated hypoxemia and RV strain. Submassive PE - s/p TPA infusion - heparin infusion and will transition to Eliquis per hematology today. - hematology consult appreciated - Dr. Hsu counseled patient on high risk of sudden cardiac x 2 weeks and 30% change of severe persistent pulmonary hypertension. RV strain - would be a good candidate for a short 4-6 week course of sildenafil, but currently borderline hypotensive so will not start this. - hemodynamically stable. - recommended to the patient to follow up with a tuck pointer helper in [place] when she gets home. Factor V Leiden - anticoagulation as above - appreciate hematology consult and recommendation to transition to Eliquis. And currently needs 2-4 L Acute hypoxemia - nc o2 for goal spo2 > 90% - OOB with assist after TPA off - I.S. to bedside. walkfit test with oxygen 87% RA yesterday and likely will need oxygen post discharge Morbid Obesity - advance diet to regular as tolerated, weight loss counseling Cephalgia - CT brain negative, will start tylenol and [place] as Morphine no alleviating pain duration. Currently no recurrence Dispo: - transfer out of ICU Discharge Planning: Possible discharge to home with home oxygen if stable. Patient is from [place] and will be driving home starting Saturday.
[2018-05-29 17:52] LABS: Homocysteine (Cardiovascular) 8.1 umol/L (<10.4)
[2018-05-29] MEDS: Morphine Inj 4 MG/ML Vial IV.PUSH PRN (18:42)
[2018-05-30] MEDS: Chlorhexidine Gluconate 2% 1 Pack (2 Cloths) TOPICAL SCH (04:19)
[2018-05-30 08:43] VITALS: RESP 20
[2018-05-30] MEDS: Senna/Docusate Sodium 8.6/50 MG Tablet PO SCH ×2 (09:47→10:32)
[2018-05-30] MEDS: Famotidine 20 MG Tablet PO SCH (10:31)
--- NOTE | 2018-05-30 12:15 | P.PNONC ---
Subjective Interval history: Patient sitting up in chair, in no acute distress. O2 via nasal cannula at 4 L. She states that she is eager to be discharged home. Upon discharge the patient is planning on driving back to [place], where she is from. She has already received her oxygen tanks for this endeavor. We have discussed the importance of her seeking immediate emergent medical attention if her symptoms worsen at any point. She denies any bleeding, now on Eliquis. Objective Vital Signs/Intake & Output: Vital Signs 05/29/18 13:00 05/29/18 13:21 05/29/18 14:00 Temperature Pulse Rate 92 H 89 Respiratory Rate 13 13 Blood Pressure Pulse Oximetry 89 L 93 L Pulse Oximetry [Exertion with Oxygen] 93 L Pulse Oximetry [Resting on Room Air] 87 L Pulse Oximetry [Resting with Oxygen] 96 05/29/18 15:00 05/29/18 16:00 05/29/18 16:47 Temperature 97.9 F Pulse Rate 85 89 95 H Respiratory Rate 13 17 15 Blood Pressure 105/65 Pulse Oximetry 96 94 L Pulse Oximetry [Exertion with Oxygen] Pulse Oximetry [Resting on Room Air] Pulse Oximetry [Resting with Oxygen] 05/29/18 17:00 05/29/18 18:00 05/29/18 19:00 Temperature Pulse Rate 103 H 113 H 93 H Respiratory Rate 24 27 H 20 Blood Pressure Pulse Oximetry 96 88 L 95 Pulse Oximetry [Exertion with Oxygen] Pulse Oximetry [Resting on Room Air] Pulse Oximetry [Resting with Oxygen] 05/29/18 20:00 05/29/18 20:05 05/29/18 20:49 Temperature 99.1 F Pulse Rate 99 H 90 88 Respiratory Rate 24 17 24 Blood Pressure 120/65 120/65 Pulse Oximetry 98 97 98 Pulse Oximetry [Exertion with Oxygen] Pulse Oximetry [Resting on Room Air] Pulse Oximetry [Resting with Oxygen] 05/29/18 21:00 05/29/18 22:00 05/29/18 23:00 Temperature Pulse Rate 92 H 104 H 88 Respiratory Rate 15 21 13 Blood Pressure Pulse Oximetry 96 95 94 L Pulse Oximetry [Exertion with Oxygen] Pulse Oximetry [Resting on Room Air] Pulse Oximetry [Resting with Oxygen] 05/29/18 23:20 05/29/18 23:55 05/30/18 00:42 Temperature 98.4 F 98.5 F Pulse Rate 92 H 90 Respiratory Rate 16 20 Blood Pressure 106/65 Pulse Oximetry 93 L Pulse Oximetry [Exertion with Oxygen] Pulse Oximetry [Resting on Room Air] Pulse Oximetry [Resting with Oxygen] 05/30/18 03:37 05/30/18 04:01 05/30/18 04:40 Temperature 98.2 F Pulse Rate 89 88 89 Respiratory Rate 14 18 Blood Pressure 103/67 Pulse Oximetry 99 Pulse Oximetry [Exertion with Oxygen] Pulse Oximetry [Resting on Room Air] Pulse Oximetry [Resting with Oxygen] 05/30/18 08:09 05/30/18 08:42 05/30/18 11:46 Temperature 98.3 F Pulse Rate 81 84 88 Respiratory Rate 16 20 Blood Pressure 112/68 Pulse Oximetry 97 98 Pulse Oximetry [Exertion with Oxygen] Pulse Oximetry [Resting on Room Air] Pulse Oximetry [Resting with Oxygen] Intake & Output 05/29/18 05/30/18 05/30/18 18:59 06:59 18:59 Intake Total 850 / 850 150 / 150 Output Total 1800 / 1800 550 / 550 Balance -950 / -950 -400 / -400 Weight 106.6 kg Intake: IV 250 / 250 Heparin/D5W 25,000 U/250 mL 25, 250 / 250 000 unit In 250 ml @ Per Protocol IV.CONT TITRATE PRN Rx #:[id number] Oral 600 / 600 150 / 150 Output: Urine 1800 / 1800 550 / 550 Other: # Voids 3 # Bowel Movements 0 Result Diagrams: 05/30/18 12:11 05/30/18 12:11 Laboratory Results: Laboratory Results - last 24 hr 05/26/18 05/26/18 05/26/18 15:05 15:05 15:05 Thrombin Time Lupus Anticoagulant Lupus Anticoag aPTT Dil Joel Viper Venom dRVVT Confirm Interp dRVVT Mix Pat/Norm 1:1 dRVVT Mix Interpret Hexagonal Phase Confirm Antithrombin III Activ 100 Factor VIII Activity 139 Homocysteine Cardiovas 8.1 Beta-2-GPI IgG Ab Beta-2-GPI IgA Ab Beta-2-GPI IgM Ab 05/26/18 15:05 Thrombin Time ND Lupus Anticoagulant Lupus Anticoag aPTT 32.0 Dil Joel Viper Venom 42.0 dRVVT Confirm Interp ND dRVVT Mix Pat/Norm 1:1 ND dRVVT Mix Interpret ND Hexagonal Phase Confirm ND Antithrombin III Activ Factor VIII Activity Homocysteine Cardiovas Beta-2-GPI IgG Ab Less than 9.0 Beta-2-GPI IgA Ab Less than 9.0 Beta-2-GPI IgM Ab Less than 9.0 Medications: Active Medications Generic Name Dose Route Start Last Admin Trade Name Freq PRN Reason Stop Dose Admin Hydrocodone Bitart/Acetaminophen 1 tab 05/28/18 12:55 05/29/18 23:54 [place] 5/325 PO 1 tab Q4H PRN Administration PAIN SCALE 6 TO 10 Albuterol 1 ampul 05/26/18 16:00 05/30/18 08:40 Duoneb Neb (Mae) NEB 1 ampul Q4HR NEB MAE Administration Apixaban 10 mg 05/29/18 23:00 05/30/18 09:48 Eliquis PO 10 mg BID MAE Administration Chlorhexidine Gluconate 3 pack 05/27/18 04:00 05/30/18 04:19 Chlorhexidine 2% Cloth TOPICAL 06/01/18 03:59 Not Given DAILY@0400 [facility] Eszopiclone 2 mg 05/26/18 17:30 05/29/18 22:00 Lunesta PO 2 mg HS PRN Administration SLEEP Famotidine 20 mg 05/26/18 13:45 05/30/18 10:31 Pepcid PO 20 mg BID MAE Administration Morphine Sulfate 2 mg 05/26/18 15:32 05/29/18 18:42 Morphine Inj IV.PUSH 2 mg Q1H PRN Administration PAIN 1 TO 4 Ondansetron HCl 4 mg 05/26/18 20:26 05/27/18 19:37 Zofran Inj IV.PUSH 4 mg Q6H PRN Administration NAUSEA OR VOMITING Senna/Docusate Sodium 1 tab 05/26/18 21:00 05/30/18 10:32 Ina-Colace PO Not Given BID [facility] Sodium Chloride 2 ml 05/26/18 08:45 05/28/18 09:05 Ns Flush IV.FLUSH 2 ml PRN PRN Administration FLUSH AFTER USING IV ACCESS Objective Remarks: GENERAL: Well-nourished, well-developed female patient. In no acute distress. SKIN: Warm and dry. HEAD: Normocephalic. EYES: No scleral icterus. No injection or drainage. NECK: Supple, trachea midline. CARDIOVASCULAR: Regular rate and rhythm without murmurs. RESPIRATORY: Breath sounds equal bilaterally. No accessory muscle use. O2 nasal cannula 4 L. GASTROINTESTINAL: Abdomen soft, non-tender, nondistended. EXTREMITIES: No cyanosis, or edema. MUSCULOSKELETAL: Adequate muscle tone. NEUROLOGICAL: No obvious focal deficit. Awake, alert, and oriented x3. PSYCHIATRIC: Appropriate mood and affect; insight and judgment normal. Assessment/Plan (1) Factor V Leiden Code(s): D68.51 - Activated protein C resistance Status: Acute (2) Acute pulmonary embolus Code(s): I26.99 - Other pulmonary embolism without acute cor pulmonale Status : Acute (3) DVT (deep venous thrombosis) Code(s): I82.409 - Acute embolism and thrombosis of unspecified deep veins of unspecified lower extremity Status: Acute - Plan 43-year-old female with history of factor V Leiden admitted with large burden pulmonary embolism requiring TPA. --Continue Eliquis. Monitor for bleeding. --Supportive care as needed. 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 - Attending Statement The exam, history, and the medical decision-making described in the above note were completed with the assistance of the mid-level provider. I reviewed and agree with the findings presented. I attest that I had a [id number] encounter with the patient on the same day, and personally performed and documented my assessment and findings in the medical record. states that her breathing is better. Tolerating Eliquis. Off of heparin. adamant to go back to [place] tomorrow AM. She is not flying , has rented the car. She has appt with PCP on saturday AM. D/W risks involved. She still needs O2. (2) Acute pulmonary embolus Qualifiers: Pulmonary embolism type: other Acute cor pulmonale presence: with acute cor pulmonale Qualified Code(s): I26.09 - Other pulmonary embolism with acute cor pulmonale (3) DVT (deep venous thrombosis) Qualifiers: DVT location: lower extremity Affected thrombotic vein of extremity: popliteal Chronicity: acute Laterality: right Qualified Code(s): I82.431 - Acute embolism and thrombosis of right popliteal vein
[2018-05-30 12:48] LABS: Hematocrit 28.6 % (35.0-46.0); Hemoglobin 9.2 gm/dL (11.6-15.3); Mean Corpuscular HGB Conc 32.1 % (32.0-36.0); Mean Corpuscular Hemoglobin 27.9 pg (27.0-34.0); Mean Corpuscular Volume 86.8 fL (80.0-100.0); Mean Platelet Volume 9.4 fL (7.0-11.0); Platelet Count 197 th/mm3 (150-450); Red Cell Distribution Width 17.1 % (11.6-17.2)
[2018-05-30 13:02] VITALS: BP 112/64; TEMP 98; O2SAT 97
[2018-05-30 13:17] LABS: Anion Gap 8 meq/L (5-15); Blood Urea Nitrogen 4 mg/dL (7-18); Calcium 8.8 mg/dL (8.5-10.1); Chloride 108 meq/L (98-107); Glomerular Filtration Rate Greater Than 89 mL/min (>89); Glucose,Random 79 mg/dL (74-106); Potassium 3.9 meq/L (3.5-5.1); Sodium 144 meq/L (136-145)
[2018-05-30] MEDS ORDERED: ALPRAZolam 0.25 MG Tablet PO PRN (13:36)
--- NOTE | 2018-05-30 13:43 | P.DS ---
Date of admission: 05/26/18 10:43 Primary care physician: No Primary Care Physician Brief History from admission: The patient is a 43-year-old female with a past medical history of factor V Leiden mutation, multiple miscarriages, who presented to [facility] ED with complaints of shortness of breath that started when she arrived from [place] on a flight Saturday and progressively worsened overnight. She also reports midsternal chest pain intermittently, localized, worse with exertion. She denies any associated symptoms of cough or any constitutional symptoms. On arrival to the ER, she was tachycardic. A CTA of the chest showed large burden of central PE with findings suggestive of elevated right-sided heart pressure/right heart strain. The patient also had a Doppler ultrasound of the lower extremity in the ER, which showed occlusive thrombus, DVT within the right popliteal vein and within the non-deep veins of the calf. The patient went to IR where she underwent thrombolysis and tPA was initiated at 2 mg in an hour along with heparin drip at 500 units per hour. The patient is on room air oxygen when seen. Echocardiogram was obtained as well, which showed EF of 55% to 60%, reduced systolic RV function with mild RV enlargement. The patient denies any prior history of thromboembolism and denies any family history of PE/DVT. DS: Medications - Discharge Medications Prescriptions: apixaban [Eliquis] 10 mg PO BID #10 tab apixaban [Eliquis] 5 mg PO BID #60 tab DS: Summary Hospital Course: Clinical update at [place]: In bed says he feels much better has O2 arranged and takes all precautions for the trip back home in [place]. No fever or chills. No cough, no pain in her legs. 43y/o WF with Factor V Leiden and submassive PE with associated hypoxemia and RV strain. Submassive PE. Patient with h/o Factor V Leiden deficiency - s/p TPA infusion - heparin infusion and will transition to Eliquis per hematology today. - hematology consult appreciated - Dr. Hsu counseled patient on high risk of sudden cardiac x 2 weeks and 30% change of severe persistent pulmonary hypertension. RV strain - would be a good candidate for a short 4-6 week course of sildenafil, but currently borderline hypotensive so will not start this. - hemodynamically stable. - recommended to the patient to follow up with a livestock farmworker in [place] when she gets home. Factor V Leiden - anticoagulation as above - appreciate hematology consult and recommendation to transition to Eliquis. And currently needs 2-4 L Acute hypoxemia - nc o2 for goal spo2 > 90% - OOB with assist after TPA off - I.S. to bedside. walkfit test with oxygen 87% RA yesterday and likely will need oxygen post discharge Morbid Obesity - advance diet to regular as tolerated, weight loss counseling Cephalgia - CT brain negative, will start tylenol and Bokeelia as Morphine no alleviating pain duration. Currently no recurrence Dispo: - transfer out of ICU Discharge Planning: Discharge to home with home oxygen. Patient is from [place] and her will be driving home. Patient says she will take a break every 2.5 hrs from driving. and also will sleep in the hotel at night. Has all arrangements done and she feel confident to go home. She is very reliable and has a great support from her family. - Time Spent with Patient Total time spent providing and/or coordinating discharge services: Greater than 30 minutes - Quality: VTE Deep Vein Thrombosis/Pulmonary Embolism Present on Admission: Yes Exam Vital signs: Vital Signs 05/29/18 14:00 05/29/18 15:00 05/29/18 16:00 Temperature 97.9 F Pulse Rate 89 85 89 Respiratory Rate 13 13 17 Blood Pressure 105/65 Pulse Oximetry 93 L 96 94 L 05/29/18 16:47 05/29/18 17:00 05/29/18 18:00 Temperature Pulse Rate 95 H 103 H 113 H Respiratory Rate 15 24 27 H Blood Pressure Pulse Oximetry 96 88 L 05/29/18 19:00 05/29/18 20:00 05/29/18 20:05 Temperature 99.1 F Pulse Rate 93 H 99 H 90 Respiratory Rate 20 24 17 Blood Pressure 120/65 120/65 Pulse Oximetry 95 98 97 05/29/18 20:49 05/29/18 21:00 05/29/18 22:00 Temperature Pulse Rate 88 92 H 104 H Respiratory Rate 24 15 21 Blood Pressure Pulse Oximetry 98 96 95 05/29/18 23:00 05/29/18 23:20 05/29/18 23:55 Temperature 98.4 F Pulse Rate 88 92 H Respiratory Rate 13 16 Blood Pressure Pulse Oximetry 94 L 05/30/18 00:42 05/30/18 03:37 05/30/18 04:01 Temperature 98.5 F Pulse Rate 90 89 88 Respiratory Rate 20 14 Blood Pressure 106/65 Pulse Oximetry 93 L 05/30/18 04:40 05/30/18 08:09 05/30/18 08:42 Temperature 98.2 F 98.3 F Pulse Rate 89 81 84 Respiratory Rate 18 16 20 Blood Pressure 103/67 112/68 Pulse Oximetry 99 97 98 05/30/18 11:46 05/30/18 12:40 Temperature 98.0 F Pulse Rate 88 97 H Respiratory Rate 20 Blood Pressure 112/64 Pulse Oximetry 97 Intake & Output 05/29/18 05/30/18 05/30/18 18:59 06:59 18:59 Intake Total 850 / 850 150 / 150 Output Total 1800 / 1800 550 / 550 Balance -950 / -950 -400 / -400 Weight 106.6 kg Intake: IV 250 / 250 Heparin/D5W 25,000 U/250 mL 25, 250 / 250 000 unit In 250 ml @ Per Protocol IV.CONT TITRATE PRN Rx #:[id number] Oral 600 / 600 150 / 150 Output: Urine 1800 / 1800 550 / 550 Other: # Voids 3 # Bowel Movements 0 Narrative: GENERAL: This is a very pleasant well-nourished, well-developed patient, in no apparent distress. CARDIOVASCULAR: Regular rate and rhythm RESPIRATORY: CTAB, no wheezing. GASTROINTESTINAL: Abdomen soft, non-tender, nondistended. Normal active bowel sounds NEURO: Alert & Oriented x4 to person, place, time, situation. Moves all ext x4 Results Procedures completed during hospitalization: no procedures Labs on day of discharge: Labs from last 24 hours 05/30/18 05/30/18 05/30/18 12:11 12:11 12:11 WBC 5.0 RBC 3.30 L Hgb 9.2 L Hct 28.6 L MCV 86.8 D MCH 27.9 MCHC 32.1 RDW 17.1 Plt Count 197 D MPV 9.4 APTT 26.0 D Thrombin Time Lupus Anticoagulant Lupus Anticoag aPTT Dil Joel Viper Venom dRVVT Confirm Interp dRVVT Mix Pat/Norm 1:1 dRVVT Mix Interpret Hexagonal Phase Confirm Antithrombin III Activ Factor VIII Activity Sodium 144 Potassium 3.9 D Chloride 108 H Carbon Dioxide 28.0 Anion Gap 8 BUN 4 L Creatinine 0.56 Estimated GFR Greater than 89 Random Glucose 79 Calcium 8.8 D Homocysteine Cardiovas Beta-2-GPI IgG Ab Beta-2-GPI IgA Ab Beta-2-GPI IgM Ab 05/26/18 05/26/18 05/26/18 15:05 15:05 15:05 WBC RBC Hgb Hct MCV MCH MCHC RDW Plt Count MPV APTT Thrombin Time ND Lupus Anticoagulant Lupus Anticoag aPTT 32.0 Dil Joel Viper Venom 42.0 dRVVT Confirm Interp ND dRVVT Mix Pat/Norm 1:1 ND dRVVT Mix Interpret ND Hexagonal Phase Confirm ND Antithrombin III Activ Factor VIII Activity 139 Sodium Potassium Chloride Carbon Dioxide Anion Gap BUN Creatinine Estimated GFR Random Glucose Calcium Homocysteine Cardiovas 8.1 Beta-2-GPI IgG Ab Less than 9.0 Beta-2-GPI IgA Ab Less than 9.0 Beta-2-GPI IgM Ab Less than 9.0 05/26/18 15:05 WBC RBC Hgb Hct MCV MCH MCHC RDW Plt Count MPV APTT Thrombin Time Lupus Anticoagulant Lupus Anticoag aPTT Dil Joel Viper Venom dRVVT Confirm Interp dRVVT Mix Pat/Norm 1:1 dRVVT Mix Interpret Hexagonal Phase Confirm Antithrombin III Activ 100 Factor VIII Activity Sodium Potassium Chloride Carbon Dioxide Anion Gap BUN Creatinine Estimated GFR Random Glucose Calcium Homocysteine Cardiovas Beta-2-GPI IgG Ab Beta-2-GPI IgA Ab Beta-2-GPI IgM Ab - Impressions ITS Impressions Liver Ultrasound 05/26/18 00:00 CONCLUSION: The liver is slightly echogenic which may be due to fatty infiltration and or hepatocellular dysfunction. Chest CTA 05/26/18 08:45 CONCLUSION: 1. There is a large burden of a central PE that appears acute. There are associated findings suggesting elevated right heart pressures/right heart strain. 2. The lungs are clear and no other acute finding is identified. 3. These findings were related to the ordering physician immediately after the procedure was completed. Chest X-Ray 05/26/18 08:45 CONCLUSION: No acute cardiopulmonary abnormality is identified. Venous Doppler Study 05/26/18 08:45 CONCLUSION: 1. There is occlusive thrombus/DVT within the right popliteal vein and within the non deep veins of the calf. 2. The more proximal veins of the right lower extremity are patent. Central Venous Line 05/26/18 09:55 CONCLUSION: 1. Uncomplicated line placement as above. Head CT 05/27/18 00:00 CONCLUSION: 1. No acute findings in the brain. No evidence of hemorrhage. Discharge Plan - Discharge Disposition Patient Disposition: 01 Discharge Home - Discharge Condition Condition: Stable - Discharge Order Discharge Orders: Discharge Order (Routine); Ordered 05/30/18 Ordered By: Tracey Tang - Discharge Details Anticipated Discharge Date: 05/30/18 Discharge Comment: DC when arrangements are done - Physicians Team Primary Care Provider: Primary Care Karina Hall Attending Provider: Tracey Tang Other Providers: Mario Vásquez MD
[2018-05-30 16:57] VITALS: PULSE 90
== END 2018-05-30 17:19 | disposition home or self-care (01) ==
LOC: NEPE 08:30 → NEDA 10:43 → HIMC 13:15 → HCIN 05-30 00:34
PROVIDERS: ADMIT Hospitalist; ATTEND Hospitalist
DX: R74.8 Abnormal levels of other serum enzymes; D68.51 Activated protein C resistance; R09.02 Hypoxemia; Z82.3 Family history of stroke; Z88.0 Allergy status to penicillin; R06.03 Acute respiratory distress; I27.20 Pulmonary hypertension, unspecified; R00.0 Tachycardia, unspecified; I82.431 Acute embolism and thrombosis of right popliteal vein; I51.89 Other ill-defined heart diseases; I82.4Z1 Acute embolism and thrombosis of unspecified deep veins of right distal lower extremity; F51.04 Psychophysiologic insomnia; I26.09 Other pulmonary embolism with acute cor pulmonale; Z98.84 Bariatric surgery status; N95.1 Menopausal and female climacteric states; E66.01 Morbid (severe) obesity due to excess calories; G43.909 Migraine, unspecified, not intractable, without status migrainosus; Z68.41 Body mass index [BMI] 40.0-44.9, adult; Z83.2 Family history of diseases of the blood and blood-forming organs and certain disorders involving the immune mechanism; Z87.891 Personal history of nicotine dependence